=== PATIENT | female | born 1975 | race Caucasian/White ===

== ENCOUNTER 2020-06-01 06:41 | Outpatient (CLI) | payer OTHER, SELFPAY ==
--- NOTE | 2020-06-03 11:22 | SLEEP_ITS ---
Home Sleep Test DATE OF STUDY: 06/01/2020 ORDERING PROVIDER: Sharmin Luna, nurse practitioner. REASON FOR THE STUDY: Hypersomnia. HISTORY: The patient is a 45-year-old female, 5 feet 7 inches tall, weighing 358 pounds with a body mass index of 56.2. 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 Her sleep complaints include feeling tired all the time. This has gotten worse over the last 5 years. Even on her 3 days off, she does not feel fully rested. She has low energy and has noticed increased nighttime incontinence which has been present since childhood, but worse recently. This is a moderately severe problem. Her father and brother have DENNYS and her mother has a mild case with restless legs. She occasionally awakens at night with heartburn, belching, or choking. She rarely snores and it is rarely loud enough for others to complain about it. She rarely has trouble sleeping with a cold. She rarely gasps for breath at night or rarely has breathing problems witnessed by others. She occasionally sweats excessively at night, occasionally notices her heart pounding irregularly at night. She frequently falls asleep during the day rarely involuntarily, but never while driving. She does not have loss of muscle tone with strong emotion. She rarely has daytime difficulties due to excessive sleepiness. She rarely feels paralyzed on waking or falling asleep. She does not have vivid dreamlike scenes upon awakening or falling asleep and is not afraid to go to sleep. She rarely has nightmares. She rarely remembers her dreams. She frequently has racing thoughts, feelings of sadness, depression, anxiety, and frequently has muscular tension. She rarely notices parts of her body jerking. She rarely kicks at night. She occasionally has crawly achy feelings in the legs and leg pain at night. She rarely has morning jaw pain. She occasionally grinds her teeth. She constantly is bothered by pain during the day and wakes up feeling stiff in the morning. She rarely has pain at night. She frequently wakes up with sore achy muscles and neck and spine pain. She has dizziness, stomach problems, fatigue, bowel disturbances, headaches, and depression. 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 She estimates sometimes 6 hours of sleep and as much as 14 hours when she has days off from work. It takes her 30 minutes to fall asleep and she typically awakens 1-2 times while sleeping, will go to the bathroom, use Facebook. It may take 30 to 90 minutes to go back to sleep. Wake-up time varies. She does take naps. Naps are not refreshing. She is usually drowsy after waking for 1-2 hours. She feels better in the evenings than in the mornings. MEDICAL COMORBIDITIES: Hypertension, anxiety, GERD, depression, seasonal allergies, arthritis. MEDICATIONS: 1. Atenolol 25 mg a day. 2. Hydrochlorothiazide 25 mg a day. 3. Xanax 2.5 mg p.r.n. anxiety. 4. Protonix 40 mg a day. 5. Escitalopram daily. 6. Zyrtec daily. 7. Flonase 2 sprays each nostril daily. 8. Multivitamin 1 daily. 9. Bi-Flex with vitamin D daily. 10. Turmeric 2000 mg daily. HABITS: Never smoked tobacco. Caffeine 3-4 beverages a day. No alcohol or recreational drugs. DESCRIPTION OF THE STUDY: On the [place] Sleepiness Scale, her score is 10, which is elevated. This was conducted as an unattended type III portable home sleep test using 4-channel monitoring with respiratory effort channel, snoring channel, oxygen desaturation channel, and heart rate channel. The study was scored using CMS guidelines. Duration was 9 hours 10 minutes. The apnea-hypopnea index was 18, elevated. Oxygen desaturation index 13.8. Lowest desaturation 80%. She had 47 apneas. The majority 74% or 35 apneas were central, 26% of the apneas
== END 2020-06-01 06:42 | disposition home or self-care (01) ==
LOC: ANHCSM 06:42
PROVIDERS: PCP Nurse Practitioner Family; Visit Provider Nurse Practitioner Family
DX: G47.10 Hypersomnia, unspecified (principal); G47.33 Obstructive sleep apnea (adult) (pediatric)
CPT/HCPCS: 95806

== ENCOUNTER 2020-06-19 08:20 | Outpatient (CLI) | payer OTHER, SELFPAY ==
--- NOTE | ~2020-06-19 | XR_ITS ---
EXAMINATION: XR knee RT 3V DATE: 06/19/2020 08:39 INDICATION: Right knee pain TECHNIQUE: Anteroposterior, sunrise and crosstable lateral views of the right knee were obtained COMPARISON: Right knee MRI dated 01/28/2019 and right knee radiographs dated 12/12/2018 FINDINGS: No fracture. Approximately 12 mm lateral patellar subluxation with severe joint space narrowing at th e lateral side of the patellofemoral compartment. Moderate joint space narrowing in the medial compar tment. Moderate-sized marginal osteophytes in all 3 compartments. The degree of joint space narrowing has progressed since the prior radiographs in both the medial and patellofemoral compartments. Large loose osteochondral body at the lateral side of the suprapatellar pouch. Chronic heterotopic ossific ation along the inferomedial margin of the patella which may represent sequela of chronic injury to t he lateral patellofemoral retinaculum. No joint effusion/layering lipohemarthrosis. Soft tissues are unremarkable. IMPRESSION: 1. Tricompartmental osteoarthritis with interval progression of now severe patellofemoral and moderat e medial compartment osteoarthritis. Reviewed, dictated and finalized at location A. IMPRESSION: 1. Tricompartmental osteoarthritis with interval progression of now severe zavala llofemoral and moderate medial compartment osteoarthritis.
== END 2020-06-19 08:21 | disposition home or self-care (01) ==
LOC: ANHIMG 08:23
PROVIDERS: PCP Nurse Practitioner Family; Visit Provider Orthopaedic Surgery
DX: M25.561 Pain in right knee (principal); M17.11 Unilateral primary osteoarthritis, right knee
CPT/HCPCS: 73562

== ENCOUNTER 2020-09-01 04:46 | Emergency (ER) | payer OTHER, SELFPAY ==
--- NOTE | ~2020-09-01 | CT_ITS ---
EXAMINATION: CT abdomen pelvis wo con DATE: 09/01/2020 06:05 INDICATION: Left flank pain TECHNIQUE: Computed tomography (CT) of the abdomen and pelvis was performed without intravenous contr ast. Automated exposure control and iterative reconstruction technique were employed. The dose-length product was 1687.49 mGy-cm. COMPARISON: None FINDINGS: Calcified nodule at the left lung base and calcified left hilar and paraesophageal lymph node consist ent with old granulomatous disease. Heart size is normal. No pericardial or pleural effusion. Diffuse hepatic steatosis. 2 mm calcified gallstone at the neck of the normal-appearing gallbladder. Splenom egaly measuring 16.4 cm craniocaudally. Pancreas, bilateral adrenal glands and right kidney are tere l. There is mild left hydronephrosis with prominent perinephric stranding on the left kidney with tra nsition point at the left ureterovesicular junction to normal caliber left ureter. There is subtle in creased density at the ureteropelvic junction which could represent an obstructing stone in either ve ry small with volume averaging or low-density. No other evident urolithiasis. Decompressed bladder is normal. Anteverted uterus and bilateral adnexa are unremarkable. There is mild colonic diverticulosi s with a sigmoid predominance. There is no adjacent inflammatory change to suggest diverticulitis. S mall bowel and appendix are normal. No free intraperitoneal gas or fluid. Shotty bilateral inguinal l ymph nodes as well as likely reactive mild retroperitoneal lymphadenopathy with largest lymph node me asuring 12 mm in maximal short axis diameter along the right iliac chain. Moderate thoracic and sever e lumbar spondylosis. Mild anterior wedging at T11 and T12. IMPRESSION: 1. Mild left hydronephrosis and prominent perinephric stranding with transition point at the ureterop elvic junction. Tiny focus of subtle increased density at the ureteropelvic junction which is indeter minate for very small or low density stone versus artifact. 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 2. Mild diverticulosis. 3. Nonspecific splenomegaly which could be related to body habitus. 4. Likely reactive mild retroperitoneal lymphadenopathy. Reviewed, dictated and finalized at location A. IMPRESSION: 1. Mild left hydronephrosis and prominent perinephric stranding with transition point at the ureteropelvic junction. Tiny focus of subtle increased density at the ureteropelvic junction which is indeterminate for very small or low densit y stone versus artifact. Alternatively this could represent a chronic UPJ obstr uction of otherwise minimal significance aside from superimposed urinary tract infection and would correlate with urinalysis. 2. Mild diverticulosis. 3. Nonspecific splenomegaly which could be related to body habitus. 4. Likely reactive mild retroperitoneal lymphadenopathy.
[2020-09-01 04:47] VITALS: BP 194/103; PULSE 85; RESP 16; TEMP 36.9; O2SAT 98
[2020-09-01] MEDS: PROMETHAZINE HCL 25 MG/ML AMPUL 12.5 MG IV PUSH (05:13)
--- NOTE | 2020-09-01 05:13 | ED.ABDPAIN ---
HPI - Abdominal Pain General Chief Complaint: Abdominal Pain Stated Complaint: left flank pain Time Seen by Provider: 09/01/20 05:10 Source: patient Mode of arrival: ambulatory Limitations: no limitations History of Present Illness HPI narrative: Patient is a 45-year-old female complaining of left flank pain radiating to her left mid abdomen that started prior to arrival. Patient states that her pain is a 6-7 out of 10 accompanied by nausea and vomiting. Patient denies any chest pain, shortness of breath, diarrhea or fever. She denies GI bleed. Related Data Home Medications Medication Instructions Recorded Confirmed alprazolam 0.25 mg tablet 0.25 mg PO DAILY 06/22/20 06/22/20 atenolol 25 mg tablet 25 mg PO DAILY 06/22/20 06/22/20 cetirizine 10 mg tablet 10 mg PO DAILY 06/22/20 06/22/20 escitalopram oxalate 20 mg tablet 20 mg PO DAILY 06/22/20 06/22/20 glucosamine-chondroitin 250 mg-200 2 tablet PO TID 06/22/20 06/22/20 mg tablet hydrochlorothiazide 25 mg tablet 25 mg PO DAILY 06/22/20 06/22/20 ketorolac 10 mg tablet 10 mg PO Q6H PRN 06/22/20 06/22/20 pantoprazole 40 mg tablet,delayed 40 mg PO QAM 06/22/20 06/22/20 release Allergies Allergy/AdvReac Type Severity Reaction Status Date / Time No Known Allergies Allergy Verified 09/01/20 05:02 Review of Systems Review of Systems: All systems reviewed & are unremarkable except as noted in HPI and below Constitutional: Constitutional: Denies body ache(s), Denies chills, Denies excessive sweating, Denies fatigue, Denies fever(s), Denies headache(s), Denies lethargy, Denies malaise, Denies weakness and Denies weight loss Eyes: Eyes: Denies blurry vision, Denies change in vision and Denies loss of vision ENT: Denies dizziness, Denies ear discharge, Denies headache(s), Denies lip swelling, Denies epistaxis, Denies nasal congestion, Denies neck pain, Denies throat swelling and Denies tongue swelling Cardiovascular: Cardiovascular: Denies chest pain, Denies chest pain at rest, Denies chest pain with activity, Denies diaphoresis, Denies rapid heart rate, Denies edema, Denies irregular heart rhythm, Denies lightheadedness, Denies palpitations, Denies dyspnea and Denies dyspnea on exertion Respiratory: Respiratory: Denies chest congestion, Denies cough, Denies hemoptysis, Denies dyspnea and Denies dyspnea on exertion Gastrointestinal: Gastrointestinal: Denies abdominal pain, Denies melena, Denies hematochezia, Denies diarrhea, Denies nausea, Denies vomiting and Denies hematemesis Musculoskeletal: Musculoskeletal: Denies abnormal gait, Denies deformity, Denies joint swelling, Denies limited range of motion, Denies neck pain and Denies numbness Neurologic: Denies Abnormal speech present, Denies abnormal gait, Denies confusion, Denies dizziness, Denies headache(s), Denies focal weakness, Denies loss of vision, Denies numbness, Denies Other visual disturbances, Denies Sensory deficit (Neuro) and Denies weakness Psychiatric: Psychiatric: Denies confusion, Denies depression, Denies auditory hallucinations, Denies homicidal ideation and Denies suicidal ideation Endocrine: Endocrine: Denies cold intolerance, Denies excessive sweating, Denies fatigue, Denies heat intolerance and Denies palpitations Hematologic/Lymphatic: Hematologic/Lymphatic: Denies easy bleeding and Denies easy bruising Allergic/Immunologic: Allergic/Immunologic: Denies lip swelling, Denies throat swelling and Denies tongue swelling FOR[facility]LY [facility] Past Medical History Medical History (Updated 09/01/20 @ 06:54 by Lucian Leach MD) Adult body mass index 40 and over Hypertension Osteoarthritis of right knee Family History Family History Mother Hypertension Kidney disease Cerebrovascular accident Social History Social History Smoking status: Never smoker Alcohol intake: current Additional occupation/educat
[2020-09-01] MEDS: KETOROLAC 30 MG/ML VIAL (*BKC) IV PUSH (05:14)
[2020-09-01] MEDS: SODIUM CHLORIDE 0.9% IV 1,000 ML 999 ML IV CONT (05:14)
[2020-09-01 05:16] LABS: Basophils Absolute Auto 0.1 K/mm3 (0.0-0.1); Basophils Percent Auto 0.4 % (0.2-1.2); Eosinophils Absolute Auto 0.5 K/mm3 (0-0.3); Eosinophils Percent Auto 3.4 % (0-4.4); Hematocrit 39.9 % (37.0-47.0); Hemoglobin 12.9 g/dL (12.0-15.0); Immature Granulocyte Absolute 0.08 K/mm3 (0.00-0.031); Immature Granulocyte Percent A 0.5 % (0-0.5); Lymphocytes Absolute Auto 3.43 K/mm3 (0.9-3.2); Lymphocytes Percent Auto 23.1 % (18.3-44.2); Mean Corpuscular HGB Conc 32.3 g/dl (32-36); Mean Corpuscular Hemoglobin 27.4 pg (26-34); Mean Corpuscular Volume 84.7 fl (80-100); Mean Platelet Volume 10.6 fl (7.4-10.4); Monocytes Absolute Auto 0.9 K/mm3 (0.1-0.6); Monocytes Percent Auto 6.3 % (2.6-8.5); Neutrophils Absolute Auto 9.8 K/mm3 (1.3-6.7); Neutrophils Percent Auto 66.3 % (45.5-73.1); Platelet Count Result 282 k/mm3 (150-375); Red Blood Count 4.71 M/mm3 (4.2-5.4); Red Cell Distribution Width 13.8 % (11.5-14.5); White Blood Count 14.8 K/mm3 (4.5-10.0)
[2020-09-01 05:26] LABS: Anion Gap 9 mmol/L (8-16); Blood Urea Nitrogen 13 mg/dL (7-17); Calcium 9.1 mg/dL (8.4-10.2); Carbon Dioxide 28 mmol/L (22-30); Chloride 101 mmol/L (98-107); Estimated Glomerular Filt Rate > 60; Glucose 362 mg/dL (65-105); Potassium 3.9 mmol/L (3.4-5.0); Sodium 138 mmol/L (137-145)
[2020-09-01 06:16] LABS: Add Urine Microscopic? YES; Appearance Urine Cloudy (Clear); Bacteria Urine Trace /hpf; Bilirubin Urine Negative (Negative); Blood Urine 3+ (Negative); Color Urine Yellow (Yellow); Glucose Urine UA 3+ mg/dL (Negative); Ketones Urine Negative (Negative); Leukocyte Esterase Ur Negative LEU/UL (Negative); Nitrate Urine Negative (Negative); Protein Urine 1+ mg/dL (Negative); RBC Urine >75 /hpf (0-2); Specific Grav Ur 1.026 (1.001-1.035); Squamous Epithelial Cell Urine Few /hpf (Few); Urobilinogen Urine Negative mg/dL (<2.0)
[2020-09-01 06:20] VITALS: BP 150/79; PULSE 81; RESP 16; O2SAT 98
[2020-09-01 07:06] VITALS: BP 171/80; PULSE 68; RESP 16; O2SAT 98
== END 2020-09-01 07:10 | disposition home or self-care (01) ==
PROVIDERS: Emergency Provider Emergency Medicine; PCP Nurse Practitioner Family
DX: N13.2 Hydronephrosis with renal and ureteral calculous obstruction (principal); I10 Essential (primary) hypertension; M17.11 Unilateral primary osteoarthritis, right knee
CPT/HCPCS: 36415; 74176; 80048; 81001; 81025; 85025; 87086; 87088; 96361; 96374; 96375; 99284; J1885; J2550; J7030

== ENCOUNTER 2020-09-08 09:51 | Outpatient (CLI) | payer OTHER, SELFPAY ==
[2020-09-08 10:23] LABS: Basophils Absolute Auto 0.1 K/mm3 (0.0-0.1); Basophils Percent Auto 0.7 % (0.2-1.2); Eosinophils Absolute Auto 0.4 K/mm3 (0-0.3); Eosinophils Percent Auto 3.6 % (0-4.4); Hematocrit 42.3 % (37.0-47.0); Hemoglobin 13.5 g/dL (12.0-15.0); Immature Granulocyte Absolute 0.06 K/mm3 (0.00-0.031); Immature Granulocyte Percent A 0.5 % (0-0.5); Lymphocytes Absolute Auto 3.76 K/mm3 (0.9-3.2); Lymphocytes Percent Auto 31.3 % (18.3-44.2); Mean Corpuscular HGB Conc 31.9 g/dl (32-36); Mean Corpuscular Hemoglobin 26.7 pg (26-34); Mean Corpuscular Volume 83.8 fl (80-100); Mean Platelet Volume 10.3 fl (7.4-10.4); Monocytes Absolute Auto 0.6 K/mm3 (0.1-0.6); Monocytes Percent Auto 4.6 % (2.6-8.5); Neutrophils Absolute Auto 7.2 K/mm3 (1.3-6.7); Neutrophils Percent Auto 59.3 % (45.5-73.1); Platelet Count Result 314 k/mm3 (150-375); Red Blood Count 5.05 M/mm3 (4.2-5.4); Red Cell Distribution Width 14.1 % (11.5-14.5)
[2020-09-08 10:25] LABS: Hemoglobin A1C 7.9 % (<5.7)
[2020-09-08 10:28] LABS: Alanine Aminotransferase 20 U/L (4-35); Albumin Level 4.4 g/dL (3.5-5.1); Alkaline Phosphatase 98 U/L (38-126); Anion Gap 11 mmol/L (8-16); Aspartate Amino Transferase 60 U/L (14-36); Bilirubin,Total 0.7 mg/dL (0.2-1.3); Blood Urea Nitrogen 14 mg/dL (7-17); Calcium 9.5 mg/dL (8.4-10.2); Carbon Dioxide 26 mmol/L (22-30); Chloride 104 mmol/L (98-107); Cholesterol 204 mg/dL (0-200); Estimated Glomerular Filt Rate 54; Glucose 110 mg/dL (65-105); HDL Direct 34 mg/dL; Potassium 4.1 mmol/L (3.4-5.0); Sodium 141 mmol/L (137-145); Triglycerides 136 mg/dL (<150)
[2020-09-08 10:39] LABS: LDL Cholesterol Direct 143 mg/dL
== END 2020-09-08 09:52 | disposition home or self-care (01) ==
PROVIDERS: PCP Nurse Practitioner Family; Visit Provider Nurse Practitioner Family
DX: Z13.220 Encounter for screening for lipoid disorders (principal); Z13.29 Encounter for screening for other suspected endocrine disorder; Z13.1 Encounter for screening for diabetes mellitus; Z13.0 Encounter for screening for diseases of the blood and blood-forming organs and certain disorders involving the immune mechanism
CPT/HCPCS: 36415; 80053; 80061; 83036; 84443; 85025

== ENCOUNTER 2020-11-23 15:49 | Outpatient (CLI) | payer OTHER, SELFPAY ==
[2020-11-23 17:00] LABS: Anion Gap 5 mmol/L (8-16); Blood Urea Nitrogen 16 mg/dL (7-17); Calcium 9.5 mg/dL (8.4-10.2); Carbon Dioxide 33 mmol/L (22-30); Chloride 101 mmol/L (98-107); Cholesterol 180 mg/dL (0-200); Estimated Glomerular Filt Rate 54; Glucose 95 mg/dL (65-105); HDL Direct 34 mg/dL; Potassium 3.8 mmol/L (3.4-5.0); Sodium 139 mmol/L (137-145); Triglycerides 121 mg/dL (<150)
[2020-11-23 17:11] LABS: LDL Cholesterol Direct 118 mg/dL
== END 2020-11-23 15:50 | disposition home or self-care (01) ==
LOC: ANHLAB 15:53
PROVIDERS: PCP Nurse Practitioner Family; Visit Provider Nurse Practitioner Family
DX: E11.9 Type 2 diabetes mellitus without complications (principal); Z13.220 Encounter for screening for lipoid disorders
CPT/HCPCS: 36415; 80048; 80061; 83036

== ENCOUNTER 2020-11-29 07:58 | Outpatient (CLI) | payer OTHER, SELFPAY ==
--- NOTE | ~2020-11-29 | XR_ITS ---
EXAMINATION: XR abdomen/kub 1V EXAM DATE: 11/29/2020 08:17 INDICATION: Hydronephrosis. TECHNIQUE: Frontal projection of the upper abdomen, frontal projection lower abdomen/pelvis for inter pretation. Correlation is made to CT abdomen pelvis same date. FINDINGS: There is expected amount of colonic stool and gas. No small bowel dilation, nonobstructiv e bowel gas pattern. There are no suspicious calcifications identified. There is no organomegaly suspected. Moderate lumbar spondylosis. IMPRESSION: Unremarkable abdomen x-ray exam. Reviewed, dictated and finalized at location A. T OFFICE SPEC
--- NOTE | ~2020-11-29 | CT_ITS ---
EXAMINATION: CT abdomen pelvis wo/w con DATE: 11/29/2020 08:47 INDICATION: Left hydronephrosis. TECHNIQUE: Computed tomography (CT) of the abdomen and pelvis was performed without and with intraven ous contrast using a total of 130 mL Omnipaque-350 intravenous contrast with a double-bolus technique for simultaneous opacification of the renal parenchyma and renal collecting system. Automated exposu re control and iterative reconstruction technique were employed. The dose-length product was 3333.51 mGy-cm. COMPARISON: CT abdomen and pelvis 09/01/2020 FINDINGS: The visualized portions of the lung bases demonstrate mild scarring in paraspinal right lower lobe. A calcified left lung nodule and calcified paraesophageal and left hilar lymph nodes are consistent wi th old granulomatous disease. No pleural effusion. The heart size is normal. No pericardial effusion. There is mild splenomegaly measuring 14.5 cm. The liver, gallbladder, pancreas, adrenal glands, and right kidney are normal. Right ureter is not well-opacified in its distal half, but is normal. There is moderate left hydronephrosis with transition point at the ureteropelvic junction. The asymmetric l eft perinephric edema has improved. Left kidney is normal in size. There is no urolithiasis. Left ure ter is not opacified. The bladder is not well distended. There is diverticulosis of the colon without evidence of diverticulitis. The appendix is normal. There are no dilated loops of bowel. There is mi ld bilateral external iliac lymphadenopathy. For example, a right external iliac node measures 19 x 1 3 mm. There is no free intraperitoneal fluid. There is moderate thoracic spondylosis with mild chroni c anterior wedging of multiple lower thoracic vertebral bodies. There is severe lumbar spondylosis wi th mild chronic anterior wedging of L1 vertebral body. IMPRESSION: 1. Moderate left hydronephrosis with transition point at the ureteropelvic junction. 2. Stable mild bilateral external iliac lymphadenopathy, likely reactive. 3. Mild splenomegaly. Reviewed, dictated and finalized at location B. IMPRESSION: 1. Moderate left hydronephrosis with transition point at the ureteropelvic junc tion. 2. Stable mild bilateral external iliac lymphadenopathy, likely reactive. 3. Mild splenomegaly.
== END 2020-11-29 07:59 | disposition home or self-care (01) ==
LOC: ANHIMG 08:00
PROVIDERS: PCP Nurse Practitioner Family; Visit Provider Urology
DX: N13.30 Unspecified hydronephrosis (principal); R59.0 Localized enlarged lymph nodes; R16.1 Splenomegaly, not elsewhere classified
CPT/HCPCS: 74018; 74178; Q9967

== ENCOUNTER 2020-12-12 12:03 | Outpatient (CLI) | payer OTHER, SELFPAY ==
--- NOTE | ~2020-12-12 | NM_ITS ---
EXAMINATION: EMILIA lane renal scan DATE: 12/12/2020 13:22 INDICATION: Left hydronephrosis. TECHNIQUE: 8.5 mCi Tc-99m MAG3 was administered IV. 40 mg furosemide was administered IV immediately afterward. The patient was scanned in the supine position. A posterior abdominal radionuclide angiog dwayne was obtained. A subsequent time course of static images of the kidneys, ureters, and bladder was obtained. COMPARISON: CT abdomen and pelvis 11/29/2020, 09/01/2020 FINDINGS: The posterior abdominal radionuclide angiogram and sequential static images show normal siz e, position, and morphology of the kidneys. Peak renal parenchymal uptake was 3 min in right kidney a nd at least 29 min in left kidney (normal peak 3-5 minutes). The relative early renal uptake was 79% on the right and 21% on the left (<40% is abnormal). No abnormalities of the ureters or bladder are seen. T1/2 for clearance of activity from the right kidney and proximal collecting system was 7 minutes. T1/2 for clearance of activity from the left kidney and proximal collecting system could not be measu red. IMPRESSION: 1. Delayed and decreased left-sided nephrogram, consistent with obstructive uropathy. Reviewed, dictated and finalized at location A. ON GRADER IMPRESSION: 1. Delayed and decreased left-sided nephrogram, consistent with obstructive ur opathy.
== END 2020-12-12 12:04 | disposition home or self-care (01) ==
LOC: ANHIMG 12:07
PROVIDERS: PCP Nurse Practitioner Family; Visit Provider Urology
DX: N13.30 Unspecified hydronephrosis (principal)
CPT/HCPCS: 78708; A9562; J1940

== ENCOUNTER 2021-01-12 06:58 | Outpatient (CLI) | payer OTHER, SELFPAY ==
--- NOTE | ~2021-01-12 | XR_ITS ---
EXAMINATION: XR knee RT 3V DATE: 01/12/2021 07:19 INDICATION: Unilateral primary osteoarthritis, right knee. TECHNIQUE: 3 views of right knee were obtained. COMPARISON: Right knee radiograph 06/19/2020, MRI 01/28/2019 FINDINGS: There is lateral subluxation of patella. No fracture. There is severe osteoarthritis of pat ellofemoral compartment and moderate osteoarthritis of medial and lateral compartments. There is no k nee joint effusion. There is a large loose body in the right patellofemoral joint recess. IMPRESSION: 1. Severe right knee osteoarthritis with loose body. Reviewed, dictated and finalized at location A. ERECTOR
== END 2021-01-12 06:59 | disposition home or self-care (01) ==
PROVIDERS: PCP Nurse Practitioner Family; Visit Provider Orthopaedic Surgery
DX: M17.11 Unilateral primary osteoarthritis, right knee (principal); M23.41 Loose body in knee, right knee
CPT/HCPCS: 73562

== ENCOUNTER 2021-01-25 13:35 | Outpatient (CLI) | payer OTHER, SELFPAY ==
--- NOTE | ~2021-01-25 | NM_ITS ---
EXAMINATION: EMILIA lane renal scan DATE: 01/25/2021 15:09 INDICATION: Hydronephrosis post ureteral stent placement TECHNIQUE: 8 mCi Tc-99m MAG3 was administered IV. 40 mg furosemide was administered IV immediately a fterward. The patient was scanned in the supine position. A posterior abdominal radionuclide angiogra m was obtained. A subsequent time course of static images of the kidneys, ureters, and bladder was ob tained. COMPARISON: 12/12/2020 FINDINGS: The posterior abdominal radionuclide angiogram and sequential static images show normal position, and morphology of the kidneys. The left kidney appears decreased in size relative to the prior study as well as the contralateral right kidney. Peak renal parenchymal uptake was 1.0 min in left kidney and 3.4 min in right kidney (normal peak 3-5 minutes). The relative early renal uptake was 12% on the le ft and 88% on the right (<40% is abnormal). No abnormalities of the ureters or bladder are seen. T1/2 for clearance of activity from the left kidney and proximal collecting system was >100 minutes. T1/2 for clearance of activity from the right kidney and proximal collecting system was 5 minutes. IMPRESSION: 1. Suggestion of interval decrease in size of the left kidney with decreasing contribution to total renal function, previously 21%, now 12%. 2. Persistent markedly delayed contrast clearance from the left kidney which could be due to persist ent hydronephrosis, decreasing renal function or combination thereof. Reviewed, dictated and finalized at location B. IMPRESSION: 1. Suggestion of interval decrease in size of the left kidney with decreasing contribution to total renal function, previously 21%, now 12%. 2. Persistent markedly delayed contrast clearance from the left kidney which c ould be due to persistent hydronephrosis, decreasing renal function or combinat ion thereof.
== END 2021-01-25 13:36 | disposition home or self-care (01) ==
PROVIDERS: PCP Nurse Practitioner Family; Visit Provider Urology
DX: N13.30 Unspecified hydronephrosis (principal)
CPT/HCPCS: 78708; A9562; J1940

== ENCOUNTER 2021-03-24 07:21 | Outpatient (CLI) | payer OTHER, SELFPAY ==
[2021-03-24 07:55] LABS: Basophils Absolute Auto 0.1 K/mm3 (0.0-0.1); Basophils Percent Auto 0.6 % (0.2-1.2); Eosinophils Absolute Auto 0.3 K/mm3 (0-0.3); Eosinophils Percent Auto 2.8 % (0-4.4); Hematocrit 41.9 % (37.0-47.0); Hemoglobin 13.3 g/dL (12.0-15.0); Immature Granulocyte Absolute 0.04 K/mm3 (0.00-0.031); Immature Granulocyte Percent A 0.3 % (0-0.5); Lymphocytes Absolute Auto 4.05 K/mm3 (0.9-3.2); Lymphocytes Percent Auto 33.1 % (18.3-44.2); Mean Corpuscular HGB Conc 31.7 g/dl (32-36); Mean Corpuscular Hemoglobin 27.8 pg (26-34); Mean Corpuscular Volume 87.5 fl (80-100); Mean Platelet Volume 10.7 fl (7.4-10.4); Monocytes Absolute Auto 0.7 K/mm3 (0.1-0.6); Monocytes Percent Auto 5.4 % (2.6-8.5); Neutrophils Absolute Auto 7.1 K/mm3 (1.3-6.7); Neutrophils Percent Auto 57.8 % (45.5-73.1); Platelet Count Result 245 k/mm3 (150-375); Red Blood Count 4.79 M/mm3 (4.2-5.4); Red Cell Distribution Width 14.4 % (11.5-14.5); White Blood Count 12.2 K/mm3 (4.5-10.0)
[2021-03-24 08:07] LABS: Alanine Aminotransferase 9 U/L (4-35); Albumin Level 4.5 g/dL (3.5-5.1); Alkaline Phosphatase 60 U/L (38-126); Anion Gap 7 mmol/L (8-16); Aspartate Amino Transferase 40 U/L (14-36); Bilirubin,Total 0.7 mg/dL (0.2-1.3); Blood Urea Nitrogen 17 mg/dL (7-17); Calcium 10.1 mg/dL (8.4-10.2); Carbon Dioxide 32 mmol/L (22-30); Chloride 102 mmol/L (98-107); Cholesterol 207 mg/dL (0-200); Estimated Glomerular Filt Rate 54; Glucose 90 mg/dL (65-105); HDL Direct 46 mg/dL; Sodium 141 mmol/L (137-145); Triglycerides 114 mg/dL (<150)
[2021-03-24 08:11] LABS: Hemoglobin A1C 4.8 % (<5.7)
[2021-03-24 08:18] LABS: LDL Cholesterol Direct 128 mg/dL
== END 2021-03-24 07:22 | disposition home or self-care (01) ==
PROVIDERS: PCP Nurse Practitioner Family; Visit Provider Nurse Practitioner Family
DX: E11.9 Type 2 diabetes mellitus without complications (principal); E78.5 Hyperlipidemia, unspecified; I10 Essential (primary) hypertension
CPT/HCPCS: 36415; 80053; 80061; 83036; 85025

== ENCOUNTER 2021-05-30 08:55 | Outpatient (CLI) | payer OTHER, SELFPAY ==
--- NOTE | ~2021-05-30 | US_ITS ---
EXAMINATION: US retroperitoneal comp DATE: 05/30/2021 09:19 INDICATION: Left hydronephrosis TECHNIQUE: Multiple ultrasound grayscale images of the kidneys were obtained. COMPARISON: None. FINDINGS: The right kidney measures 12.7 x 4.7 x 5.4 cm. The left kidney measures 10.4 x 4.0 x 5.0 cm. The kidn eys demonstrate normal echogenicity. There is no hydronephrosis in either kidney. No stones identif ied. The bladder is decompressed which limits evaluation. IMPRESSION: 1. Normal kidneys without hydronephrosis. Reviewed, dictated and finalized at location A.
== END 2021-05-30 08:56 | disposition home or self-care (01) ==
PROVIDERS: PCP Nurse Practitioner Family; Visit Provider Urology
DX: N13.30 Unspecified hydronephrosis (principal)
CPT/HCPCS: 76770

== ENCOUNTER 2021-06-19 08:06 | Emergency (ER) | payer OTHER, SELFPAY ==
--- NOTE | ~2021-06-19 | XR_ITS ---
EXAMINATION: XR knee RT min 4V DATE: 06/19/2021 08:25 INDICATION: Right knee pain after fall TECHNIQUE: Four views of the right knee were obtained. COMPARISON: 01/12/2021 FINDINGS: There is unchanged lateral subluxation of the patella. There is tricompartmental osteoarthr itis, severe in the patellofemoral compartment and moderate in the medial and lateral compartments. N o joint effusion/synovitis. Again noted is a large loose body in the right patellofemoral joint rece ss. IMPRESSION: 1. Severe osteoarthritis without acute osseous abnormality. Reviewed, dictated and finalized at location B.
--- NOTE | 2021-06-19 08:13 | ED.LOWEXIN ---
HPI - Extremity Injury (Lower) General Chief Complaint: Extremity Injury, Lower Stated Complaint: Right Knee Pain Time Seen by Provider: 06/19/21 08:13 Source: patient and RN notes reviewed Mode of arrival: ambulatory Limitations: no limitations History of Present Illness HPI Narrative: 46 yo female presents to the [facility] with right knee pain. Patient states that she was walking and slipped falling on her right knee. History of osteoarthritis in that knee and states that she has been working with Dr. Rodriguez and possibly needing a knee replacement. Has a small abrasion with redness, minor swelling noted to the right knee. No laxity. Is able to walk with a limp favoring the right side. Denies any back pain, hip pain. No chest pain or shortness of breath. Did not hit head. No loss of consciousness. Related Data Home Medications Medication Instructions Recorded Confirmed alprazolam 0.25 mg tablet 0.25 mg PO DAILY 06/22/20 01/18/21 atenolol 25 mg tablet 25 mg PO DAILY 06/22/20 01/18/21 cetirizine 10 mg tablet 10 mg PO DAILY 06/22/20 01/18/21 escitalopram oxalate 20 mg tablet 20 mg PO DAILY 06/22/20 01/18/21 glucosamine-chondroitin 250 mg-200 2 tablet PO TID 06/22/20 01/18/21 mg tablet hydrochlorothiazide 25 mg tablet 25 mg PO DAILY 06/22/20 01/18/21 pantoprazole 40 mg tablet,delayed 40 mg PO QAM 06/22/20 01/18/21 release metformin 500 mg tablet 500 mg PO DAILY 01/18/21 01/18/21 Allergies Allergy/AdvReac Type Severity Reaction Status Date / Time No Known Allergies Allergy Verified 06/19/21 08:24 Review of Systems Review of Systems: All systems reviewed & are unremarkable except as noted in HPI and below Constitutional: Constitutional: Reports no additional constitutional complaints Eyes: Eyes: Reports no additional eye complaints ENT: Reports system reviewed and no additional complaints, except as documented Cardiovascular: Cardiovascular: Reports no additional cardiovascular complaints Respiratory: Respiratory: Reports no additional respiratory complaints Musculoskeletal: Musculoskeletal: Reports as per HPI and Reports arthralgias (right knee) Integumentary/Breasts: Skin/Breast: Reports as per HPI Comments: abrasion to the right knee Neurologic: Reports system reviewed and no additional complaints, except as documented Psychiatric: Psychiatric: Reports no additional psychiatric complaints Allergic/Immunologic: Allergic/Immunologic: Reports no additional allergic/immunologic complaints [facility] Past Medical History Medical History (Updated 06/19/21 @ 08:40 by Doris Anaya) Anxiety Depression Hemoglobin A1c less than 7.0% nov 2020 A1c= 5.0 HTN (hypertension) Hx of gastroesophageal reflux (GERD) Hypertension Osteoarthritis of right knee Surgical History Surgical History (Updated 06/19/21 @ 08:25 by Doris Anaya) History of carpal tunnel surgery of right wrist Family History Family History Mother Hypertension Kidney disease Cerebrovascular accident Social History Social History Smoking status: Never smoker Alcohol intake: current Alcohol use details: occasional Additional occupation/education comments: [employer] Gender identity (if verbalized by the patient): Female Comments At the time of my signature, I reviewed and agree with the nursing past medical, surgical, social, and family history. There is no relevant family history pertinent to the patient complaint. Exam Const: General: healthy appearing, no acute distress and alert Nutritional Appearance: well nourished and obese Orientation/consciousness: patient oriented x3 Limitations: no limitations HENMT: Head: normal to inspection Eyes: Pupils: Equal, round and reactive pupils present Neck: Neck: normal visual inspection, no lymphadenopathy and no meningeal signs Chest: Chest palpation
[2021-06-19 08:15] VITALS: BP 153/92; PULSE 70; RESP 16; TEMP 36.6; O2SAT 100
== END 2021-06-19 08:56 | disposition home or self-care (01) ==
PROVIDERS: Emergency Provider Nurse Practitioner; PCP Nurse Practitioner Family
DX: S80.01XA Contusion of right knee, initial encounter (principal); W01.0XXA Fall on same level from slipping, tripping and stumbling without subsequent striking against object, initial encounter; Y93.01 Activity, walking, marching and hiking; M17.11 Unilateral primary osteoarthritis, right knee; I10 Essential (primary) hypertension; K21.9 Gastro-esophageal reflux disease without esophagitis; F41.9 Anxiety disorder, unspecified; F32.9 Major depressive disorder, single episode, unspecified
CPT/HCPCS: 73564; 99213; G0463

== ENCOUNTER 2021-07-13 10:28 | Outpatient (CLI) | payer OTHER, SELFPAY ==
[2021-07-13 11:27] LABS: Alanine Aminotransferase 10 U/L (4-35); Albumin Level 4.4 g/dL (3.5-5.1); Alkaline Phosphatase 62 U/L (38-126); Anion Gap 6 mmol/L (8-16); Aspartate Amino Transferase 26 U/L (14-36); Bilirubin,Total 0.5 mg/dL (0.2-1.3); Blood Urea Nitrogen 27 mg/dL (7-17); Calcium 9.3 mg/dL (8.4-10.2); Carbon Dioxide 32 mmol/L (22-30); Chloride 100 mmol/L (98-107); Cholesterol 176 mg/dL (0-200); Estimated Glomerular Filt Rate 60; Glucose 96 mg/dL (65-110); HDL Direct 53 mg/dL; Sodium 138 mmol/L (137-145); Triglycerides 68 mg/dL (<150)
[2021-07-13 11:39] LABS: LDL Cholesterol Direct 87 mg/dL
[2021-07-13 11:48] LABS: Hemoglobin A1C 4.9 % (<5.7)
== END 2021-07-13 10:29 | disposition home or self-care (01) ==
LOC: ANHLAB 10:31
PROVIDERS: PCP Nurse Practitioner Family; Visit Provider Nurse Practitioner Family
DX: E11.9 Type 2 diabetes mellitus without complications (principal); E78.5 Hyperlipidemia, unspecified
CPT/HCPCS: 36415; 80053; 80061; 83036

== ENCOUNTER 2022-04-13 07:08 | Outpatient (CLI) | payer OTHER, SELFPAY ==
[2022-04-13 07:35] LABS: Hematocrit 40.3 % (37.0-47.0); Hemoglobin 12.9 g/dL (12.0-15.0); Mean Corpuscular Volume 84.5 fl (80-100); Platelet Count Result 255 k/mm3 (150-375); Red Blood Count 4.77 M/mm3 (4.2-5.4); White Blood Count 11.2 K/mm3 (4.5-10.0)
[2022-04-13 09:56] LABS: Vitamin D 25 Hydroxy 51.2 ng/mL
[2022-04-13 10:33] LABS: Alanine Aminotransferase 15 U/L (6-35); Albumin Level 4.3 g/dL (3.5-5.1); Alkaline Phosphatase 88 U/L (38-126); Anion Gap 7 mmol/L (8-16); Aspartate Amino Transferase 43 U/L (14-36); Bilirubin,Total 0.6 mg/dL (0.2-1.3); Blood Urea Nitrogen 14 mg/dL (7-17); Calcium 8.9 mg/dL (8.4-10.2); Carbon Dioxide 29 mmol/L (22-30); Chloride 104 mmol/L (98-107); Cholesterol 205 mg/dL (0-200); Estimated Glomerular Filt Rate > 60; Glucose 120 mg/dL (65-110); HDL Direct 42 mg/dL; Potassium 4.2 mmol/L (3.4-5.0); Sodium 140 mmol/L (137-145); Triglycerides 184 mg/dL (<150)
[2022-04-13 10:43] LABS: LDL Cholesterol Direct 121 mg/dL
[2022-04-13 11:13] LABS: Hemoglobin A1C 6.3 % (<5.7)
== END 2022-04-13 07:09 | disposition home or self-care (01) ==
LOC: ANHLAB 07:14
PROVIDERS: PCP Nurse Practitioner Family; Visit Provider Nurse Practitioner Family
DX: E55.9 Vitamin D deficiency, unspecified (principal); Z13.0 Encounter for screening for diseases of the blood and blood-forming organs and certain disorders involving the immune mechanism; E11.9 Type 2 diabetes mellitus without complications
CPT/HCPCS: 36415; 80053; 80061; 82306; 82607; 83036; 84443; 85027

== ENCOUNTER 2022-12-18 08:42 | Emergency (ER) | payer OTHER, SELFPAY ==
[2022-12-18 08:51] VITALS: BP 132/79; PULSE 69; RESP 16; TEMP 37.1; O2SAT 100
--- NOTE | 2022-12-18 08:55 | ED.URI ---
HPI - URI/Sore Throat General Chief Complaint: Upper Respiratory Infection Stated Complaint: covid sx Time Seen by Provider: 12/18/22 09:03 Source: patient and RN notes reviewed Mode of arrival: ambulatory Limitations: no limitations History of Present Illness HPI Narrative: 47 y/o female presented for c/o cough and sinus congestion for about 10 days. Endorses about 3 days after onset of symptoms, she started Augmented per PCP. Reports med compliance. Patient tested negative for covid 4 days ago and again this morning. Endorses sob with exertion, chest tightness with cough, headache and fatigue. Cough is nonproductive. She has used albuterol inhaler yesterday, from a previous prescription. Also using otc meds without relief. Denies sick contacts. Denies n/v/d/f/c. MD elicited complaint: cough Related Data Home Medications Medication Instructions Recorded Confirmed alprazolam 0.25 mg tablet (Xanax) 0.25 mg PO DAILY 06/22/20 12/18/22 atenolol 25 mg tablet 25 mg PO DAILY 06/22/20 12/18/22 cetirizine 10 mg tablet 10 mg PO DAILY 06/22/20 12/18/22 escitalopram oxalate 20 mg tablet 20 mg PO DAILY 06/22/20 12/18/22 glucosamine-chondroitin 250 mg-200 2 tablet PO TID 06/22/20 12/18/22 mg tablet (Osteo Bi-Flex) hydrochlorothiazide 25 mg tablet 25 mg PO DAILY 06/22/20 12/18/22 pantoprazole 40 mg tablet,delayed 40 mg PO QAM 06/22/20 12/18/22 release metformin 500 mg tablet 500 mg PO DAILY 01/18/21 12/18/22 amoxicillin 875 mg-potassium 1 tablet PO BID 12/18/22 12/18/22 clavulanate 125 mg tablet fluconazole 150 mg tablet 150 mg PO DAILY 12/18/22 12/18/22 Allergies Allergy/AdvReac Type Severity Reaction Status Date / Time No Known Allergies Allergy Verified 12/18/22 08:48 Review of Systems Review of Systems: CONSTITUTIONAL: Denies malaise, chills, sweats, fever EYES: Denies visual changes, redness, or discharge ENT: Reports rhinorrhea, congestion, sinus pain, denies otalgia, sore throat CARDIOVASCULAR: Denies chest pain, palpitations, edema RESPIRATORY: Reports cough, post nasal drainage. Denies dyspnea GASTROINTESTINAL: Denies abdominal pain, nausea, vomiting, diarrhea SKIN: Denies rash or itching MUSCULOSKELETAL: Denies myalgia PMFSH Past Medical History Medical History Anxiety Depression Hemoglobin A1c less than 7.0% nov 2020 A1c= 5.0 HTN (hypertension) Hx of gastroesophageal reflux (GERD) Hypertension Osteoarthritis of right knee Surgical History Surgical History History of carpal tunnel surgery of right wrist Family History Family History Mother Hypertension Kidney disease Cerebrovascular accident Social History Social History Smoking status: Never smoker Alcohol intake: current Alcohol use details: occasional Occupation/Education: occupation Additional occupation/education comments: [employer] Gender identity (if verbalized by the patient): Female Exam Narrative: GENERAL: Ill-appearing, nontoxic EYES: conjunctivae clear ENT: Mucous membranes moist. TMs pearly dodson with dull light reflex bilaterally; no tragal tenderness. Oropharynx erythematous without lesions or exudate NECK: Supple. No lymphadenopathy CHEST: Clear to auscultation, breath sounds equal. No wheezing, rhonchi, rales, or stridor. No respiratory distress, speaks in full sentences. HEART: Regular rate and rhythm. No murmur heard. SKIN: Warm, dry, no rash. NEURO: Alert and oriented x3. PSYCH: Normal mood and affect Course Course Emergency Course: Patient is aware of diagnosis, understands and agrees to treatment plan. Anticipatory guidance given. Patient agrees to follow-up as directed and is aware of reasons to seek care at the emergency department. Portions of this record ma
== END 2022-12-18 10:32 | disposition home or self-care (01) ==
PROVIDERS: Emergency Provider Nurse Practitioner Family; PCP Nurse Practitioner Family
DX: J06.9 Acute upper respiratory infection, unspecified (principal); I10 Essential (primary) hypertension; K21.9 Gastro-esophageal reflux disease without esophagitis; M17.11 Unilateral primary osteoarthritis, right knee; F41.9 Anxiety disorder, unspecified; F32.A Depression, unspecified
CPT/HCPCS: 99213; G0463

== ENCOUNTER 2023-06-04 17:01 | Outpatient (CLI) | payer OTHER, SELFPAY ==
[2023-06-04 17:53] LABS: Basophils Absolute Auto 0.1 K/mm3 (0.0-0.1); Basophils Percent Auto 0.6 % (0.2-1.2); Eosinophils Absolute Auto 0.4 K/mm3 (0-0.3); Eosinophils Percent Auto 3.6 % (0-4.4); Hematocrit 40.2 % (37.0-47.0); Hemoglobin 12.6 g/dL (12.0-15.0); Immature Granulocyte Absolute 0.06 K/mm3 (0.00-0.031); Immature Granulocyte Percent A 0.6 % (0-0.5); Lymphocytes Percent Auto 25.2 % (18.3-44.2); Mean Corpuscular HGB Conc 31.3 g/dl (32-36); Mean Corpuscular Hemoglobin 26.6 pg (26-34); Mean Corpuscular Volume 84.8 fl (80-100); Mean Platelet Volume 10.9 fl (7.4-10.4); Monocytes Absolute Auto 0.6 K/mm3 (0.1-0.6); Monocytes Percent Auto 5.6 % (2.6-8.5); Neutrophils Absolute Auto 6.9 K/mm3 (1.3-6.7); Neutrophils Percent Auto 64.4 % (45.5-73.1); Platelet Count Result 236 k/mm3 (150-375); Red Blood Count 4.74 M/mm3 (4.2-5.4); Red Cell Distribution Width 14.6 % (11.5-14.5); White Blood Count 10.7 K/mm3 (4.5-10.0)
[2023-06-04 18:28] LABS: Alanine Aminotransferase 25 U/L (6-35); Albumin Level 4.3 g/dL (3.5-5.1); Alkaline Phosphatase 87 U/L (38-126); Anion Gap 9 mmol/L (8-16); Aspartate Amino Transferase 54 U/L (14-36); Bilirubin,Total 0.8 mg/dL (0.2-1.3); Blood Urea Nitrogen 13 mg/dL (7-17); Calcium 8.9 mg/dL (8.4-10.2); Carbon Dioxide 28 mmol/L (22-30); Chloride 103 mmol/L (98-107); Cholesterol 183 mg/dL (0-200); Estimated Glomerular Filt Rate > 60; Glucose 139 mg/dL (65-110); HDL Direct 37 mg/dL; Potassium 3.7 mmol/L (3.4-5.0); Sodium 140 mmol/L (137-145); Triglycerides 125 mg/dL (<150)
[2023-06-04 18:39] LABS: LDL Cholesterol Direct 114 mg/dL
[2023-06-05 03:28] LABS: Hemoglobin A1C 7.1 % (<5.7)
[2023-06-05 12:08] LABS: Vitamin D 25 Hydroxy 58.3 ng/mL
== END 2023-06-04 17:02 | disposition home or self-care (01) ==
PROVIDERS: PCP Nurse Practitioner Family; Visit Provider Nurse Practitioner Family
DX: Z13.29 Encounter for screening for other suspected endocrine disorder (principal); Z13.0 Encounter for screening for diseases of the blood and blood-forming organs and certain disorders involving the immune mechanism; I10 Essential (primary) hypertension; E11.9 Type 2 diabetes mellitus without complications; E55.9 Vitamin D deficiency, unspecified
CPT/HCPCS: 36415; 80053; 80061; 82306; 83036; 84443; 85025

== ENCOUNTER 2023-09-25 00:41 | Day surgery (SDC) | payer OTHER, SELFPAY ==
[2023-09-13 09:27] VITALS: BMI 54.8
--- NOTE | 2023-09-23 11:18 | SUR.PREOP ---
Patient called regarding upcoming procedure. Message left on patient's voicemail regarding preop instructions, appointment times, and procedure prep.
[2023-09-25 09:44] VITALS: BP 144/85; PULSE 88; RESP 18; TEMP 35.7; O2SAT 98; BMI 50.5
[2023-09-25] MEDS: LACTATED RINGERS 1,000 ML 150 ML IV CONT (10:11)
[2023-09-25 10:14] LABS: Glucose Point of Care 203 mg/dl (65-105)
--- NOTE | 2023-09-25 10:42 | PM.HPGS ---
History of Present Illness History of Present Illness Consent: Risks, benefits, and alternatives have been discussed and questions answered. Patient agrees to proceed with procedure. Chief complaint: neoplasm screening Narrative: Maricruz Kim is a 48 year old female here for first screening colonoscopy Review of Systems Constitutional: Constitutional: Denies headache(s) and Denies weakness Eyes: Eyes: Denies blurry vision ENT: Reports Normal hearing present, Denies headache(s) and Denies neck pain Cardiovascular: Cardiovascular: Denies chest pain and Denies dyspnea Respiratory: Respiratory: Denies dyspnea Gastrointestinal: Gastrointestinal: Reports no additional gastrointestinal complaints Genitourinary: Genitourinary: Denies dysuria Musculoskeletal: Musculoskeletal: Denies neck pain Integumentary/Breasts: Skin/Breast: Denies dry skin Neurologic: Reports Normal hearing present, Denies headache(s) and Denies weakness Psychiatric: Psychiatric: Denies anxiety Endocrine: Endocrine: Denies change in body appearance Hematologic/Lymphatic: Hematologic/Lymphatic: Denies easy bleeding Allergic/Immunologic: Allergic/Immunologic: Denies urticaria [facility] Past Medical History Medical History (Updated 09/25/23 @ 10:42 by Rai Ye MD) Anxiety Colon cancer screening Depression Hemoglobin A1c less than 7.0% nov 2020 A1c= 5.0 HTN (hypertension) Hx of gastroesophageal reflux (GERD) Hypertension Osteoarthritis of right knee Surgical History Surgical History History of carpal tunnel surgery of right wrist Family History Family History Mother Hypertension Kidney disease Cerebrovascular accident Social History Social History Smoking status: Never smoker Alcohol intake: current Alcohol use details: once a week Substance use: never Substance use type: does not use Living arrangements: with family Occupation/Education: occupation Additional occupation/education comments: [employer] Gender identity (if verbalized by the patient): Female Spiritual care concerns: No Meds Home Medications and Allergies Home Medications Medication Instructions Recorded Confirmed Type alprazolam 0.25 mg tablet (Xanax) 0.25 mg PO DAILY 06/22/20 09/13/23 History atenolol 25 mg tablet 25 mg PO DAILY 06/22/20 09/13/23 History cetirizine 10 mg tablet 10 mg PO DAILY 06/22/20 09/13/23 History escitalopram oxalate 20 mg tablet 20 mg PO DAILY 06/22/20 09/13/23 History glucosamine-chondroitin 250 mg-200 2 tablet PO TID 06/22/20 09/13/23 History mg tablet (Osteo Bi-Flex) hydrochlorothiazide 25 mg tablet 25 mg PO DAILY 06/22/20 09/13/23 History pantoprazole 40 mg tablet,delayed 40 mg PO QAM 06/22/20 12/18/22 History release metformin 500 mg tablet 500 mg PO DAILY 01/18/21 09/13/23 History Allergies Allergy/AdvReac Type Severity Reaction Status Date / Time No Known Allergies Allergy Verified 09/13/23 09:23 Vital Signs Vital Signs - 24 hr 09/25/23 09:44 Temperature 96.2 F L Pulse Rate 88 Respiratory Rate 18 Blood Pressure 144/85 H Pulse Oximetry 98 Oxygen Delivery Room Air Exam Const: General: comfortable and no acute distress HENMT: Face/Nose/Sinus: Normal nares present Eyes: General: appearance normal, both eyes and all related structures Neck: Neck: no JVD Resp: Auscultation: clear to auscultation bilaterally Cardio: Rate: regular rate Rhythm: regular rhythm GI: Inspection: non-distended GI Palp: Yes Soft to palpation Skin: General skin exam: normal color Neuro: General: gait normal Speech: normal speech Extrem: General: normal to inspection Psych: Mental Status: mental status grossly normal Assessment and Plan Assessment and plan (1) Colon cancer screening:
--- NOTE | 2023-09-25 10:55 | WPDANESEPPF ---
Anes - Initial Pre Proc Eval Procedure: Operation Date: 09/25/23 13:30 Proposed Procedures p Screening Colonoscopy - Rai Ye MD Date/Time: 09/25/23 10:55 Surgeon: Rai Ye MD Pre Op Diagnosis: neoplasm screening Patient Data Age: 48 Gender: F Height: 1.7 m Weight: 146.4 kg Last Vital Signs Temp 96.2 F L 09/25/23 09:44 Pulse 88 09/25/23 09:44 Resp 18 09/25/23 09:44 BP 144/85 H 09/25/23 09:44 Pulse Ox 98 09/25/23 09:44 O2 Del Method Room Air 09/25/23 09:44 Allergies Allergy/AdvReac Type Severity Reaction Status Date / Time No Known Allergies Allergy Verified 09/13/23 09:23 Home Medications Medication Instructions Recorded Confirmed Type alprazolam 0.25 mg tablet (Xanax) 0.25 mg PO DAILY 06/22/20 09/13/23 History atenolol 25 mg tablet 25 mg PO DAILY 06/22/20 09/13/23 History cetirizine 10 mg tablet 10 mg PO DAILY 06/22/20 09/13/23 History escitalopram oxalate 20 mg tablet 20 mg PO DAILY 06/22/20 09/13/23 History glucosamine-chondroitin 250 mg-200 2 tablet PO TID 06/22/20 09/13/23 History mg tablet (Osteo Bi-Flex) hydrochlorothiazide 25 mg tablet 25 mg PO DAILY 06/22/20 09/13/23 History pantoprazole 40 mg tablet,delayed 40 mg PO QAM 06/22/20 12/18/22 History release metformin 500 mg tablet 500 mg PO DAILY 01/18/21 09/13/23 History Laboratory Tests 09/25/23 10:01 POC Capillary Glucose 203 H mg/dl (65-105) Patient hx anesthesia problems: none Family hx anesthesia problems: none Results Review: All pre-operative results and documents have been reviewed as part of the pre-operative evaluation. [facility] Past Medical History Medical History (Updated 09/25/23 @ 10:42 by Rai Ye MD) Anxiety Colon cancer screening Depression Hemoglobin A1c less than 7.0% nov 2020 A1c= 5.0 HTN (hypertension) Hx of gastroesophageal reflux (GERD) Hypertension Osteoarthritis of right knee Surgical History Surgical History History of carpal tunnel surgery of right wrist Family History Family History Mother Hypertension Kidney disease Cerebrovascular accident Social History Social History Smoking status: Never smoker Alcohol intake: current Alcohol use details: once a week Substance use: never Substance use type: does not use Living arrangements: with family Occupation/Education: occupation Additional occupation/education comments: [employer] Gender identity (if verbalized by the patient): Female Spiritual care concerns: No Anes - Eval Final PreProcedure Day of Procedure 09/25/23 10:55 Patient weight: super morbidly obese Heart: regular rate and rhythm Lungs: clear to auscultation Airway: Mallampati scale class III Neurological: alert and oriented Last oral intake: >/= 8 hours ASA classification: III Emergent: no Anesthetic plan: proceed Anesthesia type and monitoring: general GIVS and standard monitoring Results Review: All pre-operative results and documents have been reviewed as part of the pre-operative evaluation. Informed Consent: The patient's anesthetic plan and its attendant risks and benefits were discussed with the patient/family/POA. Questions were solicited and answers provided to the satisfaction of the patient/family/POA.
[2023-09-25 11:08] VITALS: BP 129/108; PULSE 91; RESP 20; O2SAT 97
[2023-09-25 11:18] VITALS: BP 128/92; PULSE 91; RESP 20; O2SAT 94
[2023-09-25 11:28] VITALS: BP 141/91; PULSE 91; RESP 20; O2SAT 94
== END 2023-09-25 11:37 | disposition home or self-care (01) ==
PROVIDERS: PCP Nurse Practitioner Family; Visit Provider Internal Medicine Gastroenterology
PROC: 0DJD8ZZ Inspection of Lower Intestinal Tract, Via Natural or Artificial Opening Endoscopic (ICD-10-PCS; CPT 45378; principal; 2023-09-25 13:30)
DX: Z12.11 Encounter for screening for malignant neoplasm of colon (principal); K63.5 Polyp of colon; K57.30 Diverticulosis of large intestine without perforation or abscess without bleeding; K64.8 Other hemorrhoids; K21.9 Gastro-esophageal reflux disease without esophagitis; F41.9 Anxiety disorder, unspecified; F32.A Depression, unspecified; I10 Essential (primary) hypertension; Z82.49 Family history of ischemic heart disease and other diseases of the circulatory system; Z79.84 Long term (current) use of oral hypoglycemic drugs; E66.01 Morbid (severe) obesity due to excess calories; Z68.43 Body mass index [BMI] 50.0-59.9, adult
CPT/HCPCS: 45385; 82948; 88305; J2704; J7120

== ENCOUNTER 2023-11-19 12:22 | Emergency (ER) | payer OTHER, SELFPAY ==
--- NOTE | ~2023-11-19 | XR_ITS ---
XR hip LT min 2V DATE: 11/19/2023 13:03 INDICATION: Left hip pain for over one month. No injury. TECHNIQUE: AP and lateral views of left hip COMPARISON: None FINDINGS: There is some probable degenerative cysts of the superolateral aspect of the left acetabulu m. There is mild spurring of the left femoral head. Left hip joint space is relatively preserved. No fracture, dislocation, avascular necrosis or bone destruction is detected. Normal alignment at the pubic symphysis and left sacroiliac joint. IMPRESSION: Mild left hip osteoarthritis Reviewed, dictated and finalized at location L. [facility] [employer]
[2023-11-19 12:31] VITALS: BP 143/75; PULSE 66; RESP 16; TEMP 36; O2SAT 99
--- NOTE | 2023-11-19 12:32 | ED.GENADULT ---
HPI - General Adult General Chief complaint: Extremity Injury, Lower Stated complaint: Left Flank and Hip Pain Time Seen by Provider: 11/19/23 12:32 Source: patient Mode of arrival: ambulatory Limitations: no limitations History of Present Illness HPI narrative: 48-year-old female presented for complaint of left hip pain for over 1 month, then started with left flank pain for about 1 week. She endorses the flank pain worsened last night rating it 8/10. She has been taking Tylenol and using pain patches. She has a history of UPJ blockage with stenting in 2019 with subsequent decreased renal function. Denies pain radiating into the legs, numbness, tingling, weakness of the lower extremities, saddle paresthesia or loss of bowel or bladder. Denies hematuria, nausea, vomiting, abdominal pain, constipation, diarrhea, fevers or chills. Related Data Home Medications Medication Instructions Recorded Confirmed alprazolam 0.25 mg tablet (Xanax) 0.25 mg PO TID PRN Anxiety 06/22/20 11/19/23 atenolol 25 mg tablet 25 mg PO DAILY 06/22/20 11/19/23 cetirizine 10 mg tablet 10 mg PO DAILY 06/22/20 11/19/23 escitalopram oxalate 20 mg tablet 20 mg PO DAILY 06/22/20 11/19/23 glucosamine-chondroitin 250 mg-200 2 tablet PO TID 06/22/20 09/13/23 mg tablet (Osteo Bi-Flex) hydrochlorothiazide 25 mg tablet 25 mg PO DAILY 06/22/20 11/19/23 pantoprazole 40 mg tablet,delayed 40 mg PO QAM 06/22/20 11/19/23 release metformin 500 mg tablet 500 mg PO BID 01/18/21 11/19/23 Allergies Allergy/AdvReac Type Severity Reaction Status Date / Time No Known Allergies Allergy Verified 11/19/23 12:33 Review of Systems Review of Systems: CONSTITUTIONAL: Denies body aches, fever, chills EYES: Denies visual changes CARDIOVASCULAR: Denies chest pain, palpitations, or edema. RESPIRATORY: Denies cough or dyspnea. GASTROINTESTINAL: Denies abdominal pain, nausea, vomiting, or diarrhea. SKIN: Denies rash, itching, or wounds. MUSCULOSKELETAL: reports back pain NEUROLOGIC: Denies headache, numbness, tingling, or weakness. All systems reviewed & are unremarkable except as noted in HPI and below PMFSH Past Medical History Medical History Anxiety Colon cancer screening Depression Hemoglobin A1c less than 7.0% nov 2020 A1c= 5.0 HTN (hypertension) Hx of gastroesophageal reflux (GERD) Hypertension Osteoarthritis of right knee Surgical History Surgical History History of carpal tunnel surgery of right wrist Family History Family History Mother Hypertension Kidney disease Cerebrovascular accident Social History Social History Smoking status: Never smoker Alcohol intake: current Alcohol use details: once a week Substance use: never Substance use type: does not use Living arrangements: with family Occupation/Education: occupation Additional occupation/education comments: [employer] Gender identity (if verbalized by the patient): Female Spiritual care concerns: No Comments At time of signature, I have reviewed and agree with nursing past medical, surgical, social and family history unless otherwise noted. Please see nursing chart for further information. There is no relevant family history pertinent to the presenting complaint Exam Narrative: GENERAL: Well-appearing NECK: Supple. full ROM CHEST: Speaks in full sentences. No respiratory distress. HEART: Regular rate and rhythm. Normal and equal peripheral pulses. ABD: Soft, large, nontender; body habitus limits exam. No CVA tenderness. MUSC: No Vertebral point tenderness, no paraspinal tenderness. Mild left lateral hip TTP. BLEs with normal strength and sensation, normal range of motion endorses mild left hip pain with movement of LLE. No edema or ec
== END 2023-11-19 13:33 | disposition home or self-care (01) ==
PROVIDERS: Emergency Provider Nurse Practitioner Family; PCP Nurse Practitioner Family
DX: M25.552 Pain in left hip (principal); M54.50 Low back pain, unspecified; I10 Essential (primary) hypertension; F32.A Depression, unspecified; F41.9 Anxiety disorder, unspecified; Z79.899 Other long term (current) drug therapy; Z79.84 Long term (current) use of oral hypoglycemic drugs
CPT/HCPCS: 73502; 81003; 87086; 99213; G0463

== ENCOUNTER 2024-04-03 07:32 | Outpatient (CLI) | payer OTHER, SELFPAY ==
[2024-04-03 08:13] LABS: Hematocrit 40.1 % (37.0-47.0); Hemoglobin 12.6 g/dL (12.0-15.0); Mean Corpuscular HGB Conc 31.4 g/dl (32-36); Mean Corpuscular Volume 85.9 fl (80-100); Mean Platelet Volume 10.1 fl (7.4-10.4); Platelet Count Result 267 k/mm3 (150-375); Red Blood Count 4.67 M/mm3 (4.2-5.4); Red Cell Distribution Width 14.7 % (11.5-14.5); White Blood Count 13.8 K/mm3 (4.5-10.0)
[2024-04-03 08:39] LABS: Alanine Aminotransferase 8 U/L (6-35); Albumin Level 4.4 g/dL (3.5-5.1); Alkaline Phosphatase 74 U/L (38-126); Anion Gap 8 mmol/L (4-12); Aspartate Amino Transferase 29 U/L (14-36); Blood Urea Nitrogen 16 mg/dL (7-17); Calcium 9.1 mg/dL (8.4-10.2); Carbon Dioxide 28 mmol/L (22-30); Chloride 102 mmol/L (98-107); Cholesterol 187 mg/dL (0-200); Estimated Glomerular Filt Rate > 60; Glucose 89 mg/dL (65-110); HDL Direct 52 mg/dL; Potassium 3.6 mmol/L (3.4-5.0); Sodium 138 mmol/L (137-145); Triglycerides 131 mg/dL (<150)
[2024-04-03 08:50] LABS: LDL Cholesterol Direct 115 mg/dL
[2024-04-03 09:05] LABS: Thyroid Stimulating Hormone Reflex 0.177 uIU/mL (0.465-4.68)
[2024-04-03 09:12] LABS: Creatinine Urine 121.1 mg/dL
[2024-04-03 09:16] LABS: MALB Creatinine Ratio 7.7 mg/g (0-30); Microalbumin Urine Random 9.3 mg/L (0-16.7)
[2024-04-03 09:20] LABS: Hemoglobin A1C 5.5 % (<5.7)
[2024-04-03 10:00] LABS: Free T4 Free Thyroxine Reflex 1.08 ng/dL (0.78-2.19)
[2024-04-03 13:28] LABS: Total Triiodothyronine (T3) 2.14 NG/ML (0.97-1.69)
== END 2024-04-03 07:33 | disposition home or self-care (01) ==
LOC: ANHLAB 07:34
PROVIDERS: PCP Nurse Practitioner Family; Visit Provider Nurse Practitioner Family
DX: E11.9 Type 2 diabetes mellitus without complications (principal); Z13.220 Encounter for screening for lipoid disorders; Z13.29 Encounter for screening for other suspected endocrine disorder; Z13.0 Encounter for screening for diseases of the blood and blood-forming organs and certain disorders involving the immune mechanism
CPT/HCPCS: 36415; 80053; 80061; 82043; 83036; 84439; 84443; 84480; 85027

== ENCOUNTER 2024-04-14 08:04 | Outpatient (CLI) | payer OTHER, SELFPAY ==
--- NOTE | ~2024-04-14 | XR_ITS ---
EXAMINATION: XR lg joint inject/asp w image DATE: 04/14/2024 08:51 INDICATION: Unilateral primary osteoarthritis, left hip. TECHNIQUE: A time-out was performed to verify the patient's name, date of , and procedure to b e performed. The procedure including the risks, benefits, and alternatives was discussed with the pat ient. Risks discussed included bleeding and infection. The patient understood the risks and agreed to proceed. The skin overlying the left hip joint was prepped and draped in usual sterile fashion. An esthetic was administered with 1% lidocaine subcutaneously. A 22 G needle was advanced under fluoros copic guidance into the joint. Subsequently, injectate consisting of 2 mL 0.5% bupivacaine and 1 mL 80 mg/mL Depo-Medrol was instilled. The needle was removed and the entry site was cleaned and dresse d. There were no immediate complications. Fluoroscopy exposure time was 0.1 minutes. The total numbe r of images was 1. FINDINGS: Real-time fluoroscopy demonstrates the needle in the left hip joint. Patient's pain prior t o procedure:12/21. Patient's pain following the procedure: 2. IMPRESSION: 1. Fluoroscopy guided left hip joint injection of local anesthetic and steroid. Reviewed, dictated and finalized at location A.
== END 2024-04-14 08:05 | disposition home or self-care (01) ==
PROVIDERS: PCP Nurse Practitioner Family; Visit Provider Orthopaedic Surgery
DX: M16.12 Unilateral primary osteoarthritis, left hip (principal)
CPT/HCPCS: 20610; 77002; J1010

== ENCOUNTER 2024-04-16 09:00 | Outpatient (RCR) | payer OTHER, SELFPAY ==
--- NOTE | 2024-02-06 15:04 | PTOPEVAL1 ---
Assessment and note entered by Cole Solorio Evaluation Information Assessment Status Evaluation Diagnosis left hip pain, trochanteric bursits Onset 11/11/23 Subjective Information Pt. reports that pain has been around the left hip for about 4 months. She states that pain is mostly located through the area of the left groin. She reports that pain is worsened with walking long distances. She describes sharp pain in the left hip. She states that she does notice a catching when attempting to get up from a seated position. She reports that she had a recent injection into the bursae on the left that help to reduce her pain. She uses Tylenol and ibuprofen to help reduce her pain. She reports no difficulty with sleep. She reports that she can complete all IADL's despite her pain. She states that her goal for therapy is to reduce the pain in the left hip. Reported Pain Level Pain Score 3: Self Report Assessment PT Clinical Summary Pt. is a 48 year old female who enters the clinic with a diagnosis of left hip pain. She presents with impaired hip mobility, impaired proximal l.e. strength, impaired postural awareness and pain on this date. Continued skilled PT is indicated in order to improve these areas to allow for improved comfort with IADL's. Plan of Care Interventions Electrical Stimulation,Gait Training,Hot Pack/Cold Pack,Manual Therapy,Neuro Re-education,Patient/ Caregiver Educati,Therapeutic Activities, Therapeutic Exercise PT Services Indicated Yes Treatment Frequency and 2x/week x 8 visits Duration These treatments will address the objective and functional deficits as defined above. The patient will be advanced safely and appropriately in order for the patient to progress towards his/her prior level of function. Additional exercises will be introduced and as well as a comprehensive home exercise program upon discharge, if needed, ?to ensure carryover of functional gains achieved in the clinic. This treatment plan has been reviewed and agreement upon by the patient.
--- NOTE | 2024-02-06 15:05 | OPREHPOC ---
Outpatient Therapy Plan of Care This is a Multidisciplinary Plan of Care that may contain components documented by all disciplines (PT, OT, and ST.) PT Problem 1 PT Problem #1 Knowledge Deficit PT Goal 1 Goal Independent with a HEP addressing hip mobility and strength. Target Visit 2 PT Problem 2 PT Problem #2 Impaired Gait PT Goal 1 Goal Pt. will ambulate for duration of 5 minutes demonstrating no episode of gait scissoring and absence of trendelenburg on left. Target Visit 8 PT Problem 3 PT Problem #3 Impaired Flexibility PT Goal 1 Goal Pt. will demonstrate 65 degrees passive prone left hip ER Pt. will demonstrate 35 degrees passive prone left hip IR PT Problem 4 PT Problem #4 Impaired Functional Mobil PT Goal 1 Goal Pt. will score 70 or greater on the LEFS indicating significant functional improvement Target Visit 10 PT Problem 5 PT Problem #5 Impaired Strength PT Goal 1 Goal Pt. will present with 4+/5 left hip abduction and extension strength
--- NOTE | 2024-03-12 10:58 | PCPTNOTE ---
pt called and canceled today's appt.
--- NOTE | 2024-03-19 14:31 | OPREHPOC ---
Outpatient Therapy Plan of Care This is a Multidisciplinary Plan of Care that may contain components documented by all disciplines (PT, OT, and ST.) PT Problem 1 PT Problem #1 Knowledge Deficit PT Goal 1 Goal Independent with a HEP addressing hip mobility and strength. Target Visit 2 Progress Met PT Problem 2 PT Problem #2 Impaired Gait PT Goal 1 Goal Pt. will ambulate for duration of 5 minutes demonstrating no episode of gait scissoring and absence of trendelenburg on left. Target Visit 8 Progress Met PT Problem 3 PT Problem #3 Impaired Flexibility PT Goal 1 Goal Pt. will demonstrate 65 degrees passive prone left hip ER Pt. will demonstrate 35 degrees passive prone left hip IR Progress Partially Met Comment Continues to lack internal rotation PT Problem 4 PT Problem #4 Impaired Functional Mobil PT Goal 1 Goal Pt. will score 70 or greater on the LEFS indicating significant functional improvement Target Visit 10 Progress Partially Met PT Problem 5 PT Problem #5 Impaired Strength PT Goal 1 Goal Pt. will present with 4+/5 left hip abduction and extension strength Progress Met Comment Improve. Minor lack remaining
--- NOTE | 2024-03-19 14:34 | PTOPPROG ---
Assessment and note entered by Lawrence Hobbs, PT Evaluation Information Assessment Status Progress Diagnosis left hip pain, trochanteric bursits Onset 11/11/23 Subjective Information Reports that since staring therapy she feels she has gotten a lot stronger and is overall about 40% better, but she does not think there is a lot of staying power to her current regimen as far as reducing the indicators of pin from a seated position. Would like to continue therapy to continue to emphasize hip mobility. Assessment PT Clinical Summary Patient making progress in strength. She is showing ROM deficits lacking significant internal rotation of left hip and extension. Will benefit from skilled therapy continuation focusing on ROM deficits and hip mobility coupled with continued hip strengthening. Plan of Care Interventions Electrical Stimulation,Gait Training,Hot Pack/Cold Pack,Manual Therapy,Neuro Re-education,Patient/ Caregiver Education,Therapeutic Activities, Therapeutic Exercise PT Services Indicated Yes Treatment Frequency and 1x/week for 4 weeks Duration These treatments will address the objective and functional deficits as defined above. The patient will be advanced safely and appropriately in order for the patient to progress towards his/her prior level of function. Additional exercises will be introduced and as well as a comprehensive home exercise program upon discharge, if needed, ?to ensure carryover of functional gains achieved in the clinic. This treatment plan has been reviewed and agreement upon by the patient.
--- NOTE | 2024-03-23 16:42 | PCPTNOTE ---
Pt no showed visit today.
--- NOTE | 2024-04-16 16:48 | OPREHPOC ---
Outpatient Therapy Plan of Care This is a Multidisciplinary Plan of Care that may contain components documented by all disciplines (PT, OT, and ST.) PT Problem 1 PT Problem #1 Knowledge Deficit PT Goal 1 Goal Independent with a HEP addressing hip mobility and strength. Target Visit 2 Progress Met PT Problem 2 PT Problem #2 Impaired Gait PT Goal 1 Goal Pt. will ambulate for duration of 5 minutes demonstrating no episode of gait scissoring and absence of trendelenburg on left. Target Visit 8 Progress Met PT Problem 3 PT Problem #3 Impaired Flexibility PT Goal 1 Goal Pt. will demonstrate 65 degrees passive prone left hip ER Pt. will demonstrate 35 degrees passive prone left hip IR Progress Partially Met Comment Continues to lack internal rotation PT Problem 4 PT Problem #4 Impaired Functional Mobil PT Goal 1 Goal Pt. will score 70 or greater on the LEFS indicating significant functional improvement Target Visit 10 Progress Met PT Problem 5 PT Problem #5 Impaired Strength PT Goal 1 Goal Pt. will present with 4+/5 left hip abduction and extension strength Progress Met Comment Improve. Minor lack remaining. Will reinforce through HEP.
--- NOTE | 2024-04-16 16:48 | PTOPDC ---
Assessment and note entered by Lawrence Hobbs, PT Evaluation Information Assessment Status Discharge Diagnosis left hip pain, trochanteric bursitis Onset 11/11/23 Subjective Information Reports that she had fluoroscopy injection on Saturday04/14/24. Reports initial increase in pain. Pain continues to be in lateral hip with increased pain from lateral movements. Walking seems to be much better with little to no pain during performance. Patient plans to continue with HEP to develop hip strength and mobility. Reported Pain Level Pain Score 3: Self Report Assessment PT Clinical Summary Patient reports that she has had some improvement but still suffers from hip pain that is primarily lateral. She is still showing minor hip mobility restrictions but demonstrates understanding of HEP to continue to address these deficits. Patient suitable for D/C to HEP at this time with compliance. Plan of Care PT Services Indicated D/C to HEP
== END 2024-04-17 08:13 | disposition home or self-care (01) ==
LOC: ANHPT 09:00
PROVIDERS: PCP Nurse Practitioner Family; Visit Provider Physician Assistant Surgical
DX: M70.62 Trochanteric bursitis, left hip (principal); M16.12 Unilateral primary osteoarthritis, left hip
CPT/HCPCS: 97014; 97110; 97140; 97161; 97530; 99199; G0283

== ENCOUNTER 2024-05-13 06:49 | Outpatient (CLI) | payer OTHER, SELFPAY ==
--- NOTE | ~2024-05-13 | MR_ITS ---
EXAMINATION: MR hip LT wo con DATE: 05/13/2024 07:57 INDICATION: Pain in left hip. TECHNIQUE: Magnetic resonance imaging (MRI) of the left hip was performed without intravenous contras t. COMPARISON: Left hip radiographs 11/19/2023 FINDINGS: Bones/cartilage: Bone alignment is normal. No fracture. There is severe lumbar spondylosis. There is mild right hip os teoarthritis. Small [id number] images of the left hip demonstrate full-thickness cartilage loss an terosuperiorly with subchondral cysts in the acetabulum and marginal osteophytes. Labrum: Left acetabular labrum is normal. Fluid: There is a small left hip joint effusion. There is mild right trochanteric bursitis and moderate left trochanteric bursitis. Soft tissues: There is moderate tendinopathy of the hamstring origins with small partial tears. The right gluteus m edius minimus and gluteus medius tendons are normal. Left gluteus medius tendon is normal. There is a near complete tear of left gluteus minimus tendon at its distal attachment. The iliopsoas tendons ar e normal. IMPRESSION: 1. Severe left hip chondrosis. Small left hip joint effusion. 2. Mild right hip osteoarthritis. 3. Near-complete tear of left gluteus minimus tendon. Reviewed, dictated and finalized at location A.
== END 2024-05-13 06:50 | disposition home or self-care (01) ==
PROVIDERS: PCP Nurse Practitioner Family; Visit Provider Physician Assistant Surgical
DX: M25.552 Pain in left hip (principal); M25.852 Other specified joint disorders, left hip; M25.452 Effusion, left hip; M16.12 Unilateral primary osteoarthritis, left hip; S76.012A Strain of muscle, fascia and tendon of left hip, initial encounter
CPT/HCPCS: 73721

== ENCOUNTER 2024-05-15 14:35 | Outpatient (CLI) | payer OTHER, SELFPAY ==
--- NOTE | ~2024-05-15 | MM_ITS ---
EXAMINATION: MM screening katiana BI w aurea HISTORY: Screening TECHNIQUE: Craniocaudal and mediolateral oblique 3-D tomosynthesis images were obtained and synthetic 2-D images were generated. CAD analysis was submitted and interpreted. COMPARISON: 01/07/2018 BREAST PARENCHYMAL COMPOSITION: Not dense: There are scattered areas of fibroglandular density. FINDINGS: There is a developing asymmetry in the periareolar location of the right breast. The left b reast is stable without evidence for malignancy. IMPRESSION: 1. Developing asymmetry periareolar location of the right breast. 2. Additional mammographic views and possible breast ultrasound are recommended. BI-RADS Category 0: Incomplete: Needs additional imaging evaluation. Reviewed, dictated and finalized at location B. IMPRESSION: 1. Developing asymmetry periareolar location of the right breast. 2. Additional mammographic views and possible breast ultrasound are recommended . BI-RADS Category 0: Incomplete: Needs additional imaging evaluation.
== END 2024-05-15 14:36 | disposition home or self-care (01) ==
LOC: ANHIMG 14:37
PROVIDERS: PCP Nurse Practitioner Family; Visit Provider Nurse Practitioner Family
DX: Z12.31 Encounter for screening mammogram for malignant neoplasm of breast (principal); R92.8 Other abnormal and inconclusive findings on diagnostic imaging of breast
CPT/HCPCS: 77063; 77067

== ENCOUNTER 2024-07-10 10:41 | Outpatient (CLI) | payer OTHER, SELFPAY ==
--- NOTE | ~2024-07-10 | MMUS_ITS ---
EXAMINATION: MM diagnostic katiana RT w aurea, US breast RT limited HISTORY: Follow-up right breast asymmetry TECHNIQUE: Additional 3-D tomosynthesis images of the right breast were performed and synthetic 2-D i mages were generated. CAD analysis was submitted and interpreted. High resolution Limited right breas t ultrasound was performed. COMPARISON: No prior studies for comparison. BREAST PARENCHYMAL COMPOSITION: Not dense: There are scattered areas of fibroglandular density. FINDINGS: MAMMOGRAPHIC FINDINGS: Focal asymmetry in the periareolar location of the right breast is not visualized on the current stud y. There are no suspicious masses, calcifications or architectural distortion in the right breast to suggest malignancy. ULTRASOUND: Limited right breast ultrasound: Normal heterogeneous echotexture without focal solid or cystic mass. IMPRESSION: 1. No evidence for malignancy in the right breast. 2. Routine yearly screening mammogram and regular clinical breast examination are recommended. BI-RADS Category 1: Negative Reviewed, dictated and finalized at location B. IMPRESSION: 1. No evidence for malignancy in the right breast. 2. Routine yearly screening mammogram and regular clinical breast examination a re recommended. BI-RADS Category 1: Negative
== END 2024-07-10 10:42 | disposition home or self-care (01) ==
LOC: ANHIMG 10:41
PROVIDERS: PCP Nurse Practitioner Family; Visit Provider Nurse Practitioner Family
DX: R92.8 Other abnormal and inconclusive findings on diagnostic imaging of breast (principal)
CPT/HCPCS: 76642; 77061; 77065; G0279

== ENCOUNTER 2024-07-27 07:41 | Outpatient (CLI) | payer OTHER, SELFPAY ==
[2024-07-27 08:42] LABS: Total Triiodothyronine (T3) 2.33 NG/ML (0.97-1.69)
[2024-07-27 09:03] LABS: Free T4 Free Thyroxine 1.19 ng/mL (0.78-2.19)
== END 2024-07-27 07:42 | disposition home or self-care (01) ==
LOC: ANHLAB 07:42
PROVIDERS: PCP Nurse Practitioner Family; Visit Provider Nurse Practitioner Family
DX: R79.89 Other specified abnormal findings of blood chemistry (principal)
CPT/HCPCS: 36415; 84439; 84443; 84480

== ENCOUNTER 2024-09-08 18:50 | Emergency (ER) | payer OTHER, SELFPAY ==
[2024-09-08 19:00] VITALS: BP 153/104; PULSE 70; RESP 15; TEMP 36.6; O2SAT 99
--- NOTE | 2024-09-08 19:15 | ED.BACK ---
HPI - Back Pain/Injury General Chief Complaint: Back Pain/Injury Stated Complaint: Left Back Side/Hip Pain Source: patient, RN notes reviewed and old records reviewed Mode of arrival: ambulatory Limitations: no limitations History of Present Illness HPI Narrative: Patient with chronic left SI joint/hip pain presents with complaints of exacerbation of chronic pain. Pain was exacerbated approximately 4 days ago. She reports that pain has become so bad it is interfering with her ADLs. She denies any new injury or trauma. She reports she has had good success with steroids and muscle relaxants to treat similar symptoms in the past. She voices no other concerns or complaints today Related Data Home Medications Medication Instructions Recorded Confirmed cetirizine 10 mg tablet 10 mg PO DAILY 06/22/20 09/08/24 glucosamine-chondroitin 250 mg-200 2 tablet PO TID 06/22/20 09/08/24 mg tablet (Osteo Bi-Flex) cholecalciferol (vitamin D3) 125 125 mcg PO DAILY 01/17/24 09/08/24 mcg (5,000 unit) capsule echinacea 125 mg capsule 400 mg PO DAILY 07/28/24 09/08/24 Allergies Allergy/AdvReac Type Severity Reaction Status Date / Time tirzepatide [From [facility]] AdvReac Severe Nausea Verified 09/08/24 18:54 murad products AdvReac Unknown unknown Uncoded 09/08/24 18:54 Review of Systems Review of Systems: All systems reviewed & are unremarkable except as noted in HPI and below Constitutional: Constitutional: Reports no additional constitutional complaints ENT: Reports system reviewed and no additional complaints, except as documented Cardiovascular: Cardiovascular: Reports no additional cardiovascular complaints Respiratory: Respiratory: Reports no additional respiratory complaints Gastrointestinal: Gastrointestinal: Reports no additional gastrointestinal complaints Musculoskeletal: Musculoskeletal: Reports no additional musculoskeletal complaints and Reports as per HPI [facility] Past Medical History Medical History Anxiety Colon cancer screening Depression Hemoglobin A1c less than 7.0% nov 2020 A1c= 5.0 HTN (hypertension) Hx of gastroesophageal reflux (GERD) Hypertension Migraine Obese Osteoarthritis of right knee Surgical History Surgical History History of carpal tunnel surgery of right wrist Family History Family History Mother Hypertension Kidney disease Cerebrovascular accident Asthma Diabetes mellitus Depression Hypothyroid Father Diabetes mellitus Hypertension Depression Heart disease Sibling Asthma Depression Grandparent Cerebrovascular accident Alcohol abuse Carcinoma of colon Social History Social History Social History: 07/28/24 Patient is very confident filling out medical forms. Smoking status: Never smoker Alcohol intake: current Drinks per week: 2 Alcohol use details: once a week Substance use: never Substance use type: does not use Do You Feel Safe in your Home?: Yes Lack of Transportation: No Lack of Food: Never True Current Housing: I Have Housing Concerned About Future Housing: No Difficulty Paying Gas/Electric Bills: No Difficulty Paying for Meds: No Currently Unemployed: No Education: Associate Degree Difficulty w/ Childcare or Family Care: No Living arrangements: alone Occupation/Education: occupation Additional occupation/education comments: [employer] Gender identity (if verbalized by the patient): Female Spiritual care concerns: No Agree to blood products: Yes Comments At the time of my signature, I reviewed and agree with the nursing past medical, surgical, social, and family history. There is no relevant family history pertinent to the patient complaint. Exam Const: General: cooperative, no acute distress, alert and awake Orientation/consciousness: oriented to person, oriented to place and oriented to time HENMT: Head: normal to inspection Resp: Effort & Inspection: normal respiratory effort and able to speak in complete sentences Auscultation: clear to auscultation bilaterally, no crackles, no rales, no rhonchi and no wheezes Cardio: Palpation: normal PMI Rate: regular rate Rhythm: regular rhythm Heart sounds: S1 normal heart sound present and S2 normal heart sound present Neuro: General: oriented to person, oriented to place and oriented to time Cranial nerves: Yes CN's II-XII intact bilaterally Extrem: Left lower extremity: hip/thigh Details: tenderness Location: of the hip Location: posteriorly Psych: Appearance: grossly normal Thought process: Normal thought process present Insight: Good insight present (Psych) Judgement: Good judgement present (Psych) Course Course Level of Care: Express Care Visit Vital Signs Vital signs: Vital Signs Temperature 97.9 F 09/08/24 19:00 Pulse Rate 70 09/08/24 19:00 Respiratory Rate 15 09/08/24 19:00 Blood Pressure 153/104 H 09/08/24 19:00 Pulse Oximetry 99 09/08/24 19:00 Oxygen Delivery Room Air 09/08/24 19:00 Temperature 97.9 F 09/08/24 19:00 Pulse Rate 70 09/08/24 19:00 Respiratory Rate 15 09/08/24 19:00 Blood Pressure 153/104 H 09/08/24 19:00 Pulse Oximetry 99 09/08/24 19:00 Oxygen Delivery Room Air 09/08/24 19:00 Reviewed MDM - Back Pain/Injury MDM Narrative Medical decision making narrative: Patient with exacerbation of chronic pain. Steroid and muscle relaxant prescribed. Discharge instructions reviewed with patient, as well as provided in writing per nursing staff. The instructions also include specific and strict return/GO TO THE ER as well as f/u information. All questions have been answered, and the patient deny any further questions with discharge and discharge plan. Some parts of this dictation were generated by voice recognition software and may contain typographical and/or grammatical inaccuracies. Differential Diagnosis Differential diagnosis: Likely lumbar radiculopathy and sciatica Discharge Plan Discharge Clinical Impression: Chronic SI joint pain Patient Disposition: Home, Self-Care Condition: Stable Instructions: Antibiotic Form, Musculoskeletal Pain (ED) Additional Instructions: Take medication as prescribed. Follow with primary care provider. Emergency department for new or worse symptoms Patient Language: Armenian Prescriptions: New cyclobenzaprine 10 mg tablet 10 mg PO TID PRN (Reason: muscle spasm) Qty: 20 0RF prednisone 50 mg tablet 50 mg PO DAILY Qty: 5 0RF No Action glucosamine-chondroitin [Osteo Bi-Flex] 250-200 mg tablet 2 tablet PO TID Rx Instructions: give after food/meal cetirizine 10 mg tablet 10 mg PO DAILY cholecalciferol (vitamin D3) 125 mcg (5,000 unit) capsule 125 mcg PO DAILY alprazolam [Xanax] 0.25 mg tablet 0.25 mg PO TID PRN (Reason: Anxiety) Qty: 90 0RF atenolol 25 mg tablet 25 mg PO DAILY Qty: 90 1RF escitalopram oxalate 20 mg tablet 20 mg PO DAILY Qty: 90 1RF hydrochlorothiazide 25 mg tablet 25 mg PO DAILY Qty: 90 3RF metformin 500 mg tablet 500 mg PO BID Qty: 180 1RF bupropion HCl [Wellbutrin XL] 150 mg tablet extended release 24 hr 150 mg PO QAM Qty: 30 3RF Rybelsus 7 mg tablet 7 mg PO DAILY Qty: 90 0RF Rx Instructions: use after 3 mg dose. omeprazole 40 mg capsule,delayed release(DR/EC) 40 mg PO DAILY Qty: 90 1RF echinacea 125 mg capsule 400 mg PO DAILY Rx Instructions: administer with meals norethindrone-e.estradiol-iron [Loestrin Fe 1.5/30 (28-Day)] 1.5 mg-30 mcg (21)/75 mg (7) tablet 1 tablet PO DAILY Qty: 84 3RF tramadol 50 mg tablet 50 mg PO Q6H PRN (Reason: pain) Qty: 30 0RF rosuvastatin 5 mg tablet 5 mg PO DAILY Qty: 90 3RF Follow-up/Referrals: Sharmin Luna APRN [Primary Care Provider] -
== END 2024-09-08 19:35 | disposition home or self-care (01) ==
PROVIDERS: Emergency Provider Nurse Practitioner Family; PCP Nurse Practitioner Family
DX: G89.29 Other chronic pain (principal); M53.3 Sacrococcygeal disorders, not elsewhere classified; I10 Essential (primary) hypertension; K21.9 Gastro-esophageal reflux disease without esophagitis; M17.11 Unilateral primary osteoarthritis, right knee
CPT/HCPCS: 99213; G0463

== ENCOUNTER 2024-10-20 13:06 | Outpatient (CLI) | payer OTHER, SELFPAY ==
[2024-10-20 14:38] LABS: Hemoglobin A1C 7.1 % (<5.7)
[2024-10-20 14:40] LABS: Alanine Aminotransferase 13 U/L (6-35); Albumin Level 4.4 g/dL (3.5-5.1); Alkaline Phosphatase 75 U/L (38-126); Anion Gap 5 mmol/L (4-12); Aspartate Amino Transferase 53 U/L (14-36); Bilirubin,Total 0.8 mg/dL (0.2-1.3); Blood Urea Nitrogen 13 mg/dL (7-17); Calcium 9.4 mg/dL (8.4-10.2); Carbon Dioxide 31 mmol/L (22-30); Chloride 102 mmol/L (98-107); Estimated Glomerular Filt Rate > 60; Glucose 120 mg/dL (65-110); Sodium 138 mmol/L (137-145)
[2024-10-20 15:11] LABS: Free T4 Free Thyroxine 1.35 ng/dL (0.78-2.19)
== END 2024-10-20 13:07 | disposition home or self-care (01) ==
LOC: ANHLAB 13:07
PROVIDERS: PCP Nurse Practitioner Family; Visit Provider Nurse Practitioner Family
DX: Z13.1 Encounter for screening for diabetes mellitus (principal); Z13.29 Encounter for screening for other suspected endocrine disorder; E03.9 Hypothyroidism, unspecified
CPT/HCPCS: 36415; 80053; 83036; 84439

== ENCOUNTER 2024-12-01 15:33 | Emergency (ER) | payer OTHER, SELFPAY ==
--- NOTE | 2024-12-01 15:41 | ED.URI ---
HPI - URI/Sore Throat General Chief Complaint: Upper Respiratory Infection Stated Complaint: earaches,cough,chills,uppper resp issue Time Seen by Provider: 12/01/24 15:41 Source: patient, RN notes reviewed and old records reviewed Mode of arrival: ambulatory Limitations: no limitations History of Present Illness HPI Narrative: 49-year-old female presents to the [facility] with complaints of earache, cough, chills, URI symptoms that started on Saturday, 3 days ago. Has been using [id number] products, nasal washes, ear drops. Related Data Home Medications ?Medication ?Instructions ?Recorded ?Confirmed ?Last Taken ?Type cetirizine 10 mg tablet 10 mg PO DAILY 06/22/20 12/01/24 Unknown History glucosamine-chondroitin 250 mg-200 2 tablet PO TID 06/22/20 12/01/24 Unknown History mg tablet (Osteo Bi-Flex) cholecalciferol (vitamin D3) 125 125 mcg PO DAILY 01/17/24 12/01/24 Unknown History mcg (5,000 unit) capsule echinacea 125 mg capsule 400 mg PO DAILY 07/28/24 12/01/24 Unknown History Allergies Allergy/AdvReac Type Severity Reaction Status Date / Time tirzepatide (From [facility]) AdvReac Severe Nausea Verified 12/01/24 15:42 murad products AdvReac Unknown unknown Uncoded 12/01/24 15:42 Review of Systems Review of Systems: All systems reviewed & are unremarkable except as noted in HPI and below Constitutional: Constitutional: Reports as per HPI and Reports chills ENT: Reports as per HPI and Reports otalgia Cardiovascular: Cardiovascular: Reports no additional cardiovascular complaints, Denies chest pain and Denies dyspnea Respiratory: Respiratory: Reports as per HPI, Denies chest congestion, Reports cough and Denies dyspnea Musculoskeletal: Musculoskeletal: Reports no additional musculoskeletal complaints Integumentary/Breasts: Skin/Breast: Reports system reviewed and no additional complaints, except as docu PMFSH Past Medical History Medical History Obese Migraine Colon cancer screening Hx of gastroesophageal reflux (GERD) Depression Anxiety HTN (hypertension) Hemoglobin A1c less than 7.0% nov 2020 A1c= 5.0 Osteoarthritis of right knee Hypertension Surgical History Surgical History History of carpal tunnel surgery of right wrist Family History Family History Mother Hypertension Kidney disease Cerebrovascular accident Asthma Diabetes mellitus Depression Hypothyroid Father Diabetes mellitus Hypertension Depression Heart disease Sibling Asthma Depression Grandparent Cerebrovascular accident Alcohol abuse Carcinoma of colon Social History Social History Social History: 10/18/24 Patient is very confident filling out medical forms. Smoking status: Never smoker Alcohol intake: current Drinks per week: 2 Alcohol use details: once a week Substance use: never Substance use type: does not use Do You Feel Safe in your Home?: Yes Lack of Transportation: No Lack of Food: Never True Current Housing: I Have Housing Concerned About Future Housing: No Difficulty Paying Gas/Electric Bills: No Difficulty Paying for Meds: No Currently Unemployed: No Education: Associate Degree Difficulty w/ Childcare or Family Care: No Living arrangements: alone Occupation/Education: occupation Additional occupation/education comments: [employer] Gender identity (if verbalized by the patient): Female Spiritual care concerns: No Agree to blood products: Yes Comments At the time of my signature, I reviewed and agree with the nursing past medical, surgical, social, and family history. There is no relevant family history pertinent to the patient complaint. Exam Const: General: cooperative, healthy appearing, comfortable, no acute distress, well developed, alert and well nourished Nutritional Appearance: well nourished and obese Orientation/consciousness: patient oriented x3 Limitations: no limitations HENMT: Head: normal to inspection Ears: TM normal on the left, EAC's normal, mastoids normal, no periauricular adenopathy and TM abnormal erythematous on the right Face/Nose/Sinus: Normal external nose present, Normal nares present and No nasal polyps present Mouth: Yes Normal oral and palatal mucosa present, Yes lip normal, Yes tongue normal and Yes moist mucous membranes Throat: posterior oropharynx normal, uvula midline, postnasal drainage and no uvular edema Eyes: General: appearance normal, both eyes and all related structures Alignment and Position: alignment normal Neck: Neck: normal visual inspection, full ROM, no lymphadenopathy and no meningeal signs Chest: Chest palpation & inspection: normal inspection of the chest Resp: Effort & Inspection: normal respiratory effort and able to speak in complete sentences Auscultation: clear to auscultation bilaterally, no crackles, no rales, no rhonchi and no wheezes Cardio: Rate: regular rate Skin: General skin exam: normal color and no rashes or lesions noted Neuro: General: patient oriented x3, gait normal, moves all extremities and no meningeal signs Cognition (Neuro): normal cognition Speech: normal speech Gait exam (Neuro): Normal gait present Extrem: General: normal to inspection, full ROM, capillary refill normal and normal gait Psych: Appearance: grossly normal and well kempt Mental Status: mental status grossly normal Speech and movement: Normal speech and movement present and Clear speech present Affect: normal affect Attitude: cooperative Course Course Level of Care: Express Care Visit Vital Signs Vital signs: Vital Signs Temperature 98.6 F 12/01/24 15:42 Pulse Rate 78 12/01/24 15:42 Respiratory Rate 16 12/01/24 15:42 Blood Pressure 160/80 H 12/01/24 15:42 Pulse Oximetry 100 12/01/24 15:42 Oxygen Delivery Room Air 12/01/24 15:42 Temperature 98.6 F 12/01/24 15:42 Pulse Rate 78 12/01/24 15:42 Respiratory Rate 16 12/01/24 15:42 Blood Pressure 160/80 H 12/01/24 15:42 Pulse Oximetry 100 12/01/24 15:42 Oxygen Delivery Room Air 12/01/24 15:42 Reviewed MDM - URI/Sore Throat MDM Narrative Medical decision making narrative: Patient sitting in exam room. Nontoxic, vitals are stable except blood pressure. Patient instructed to follow-up. Patient reports with 3 day history of URI symptoms, sinus symptoms. Right otitis media is noted. Flu COVID strep all negative. Patient appropriate for outpatient treatment with close follow-up Discharge instructions reviewed with patient, as well as provided in writing per nursing staff. The instructions also include specific and strict return/GO TO THE ER as well as f/u information. All questions have been answered, and the patient deny any further questions with discharge and discharge plan. Some parts of this dictation were generated by voice recognition software and may contain typographical and/or grammatical inaccuracies. Differential Diagnosis Differential diagnosis: Likely upper respiratory infection, croup, otitis media, sinusitis, viral infection, bronchitis, influenza and pharyngitis Lab Data Labs: Lab Results 12/01/24 Range/Units 16:10 POC Influenza A Ag Negative (Negative) POC Influenza B Ag Negative (Negative) POC SARS CoV-2 Ag Negative (Negative) POC Grp A Strep Screen Negative (Negative) Reviewed Critical Care Time Critical Care Time Critical Care Time: No Discharge Plan Discharge Clinical Impression: Acute right otitis media Sinusitis Qualifiers: Sinusitis location: pansinusitis Chronicity: acute Recurrence: not specified as recurrent Qualified Code(s): J01.40 - Acute pansinusitis, unspecified Patient Disposition: Home, Self-Care Condition: Stable Instructions: Antibiotic Form, Ear Infection (GEN), Upper Respiratory Infection (ED) Additional Instructions: Your rapid strep swab was negative today at [facility]. A throat culture will be sent to the laboratory for further testing. If the test is positive, you will receive a phone call within 48 hours and an appropriate antibiotic will be initiated at that time. Your rapid COVID test were negative Your rapid flu test was negative You have been prescribed an antibiotic for your ear infection. It is very important to treat your symptoms. Drink plenty of water, Gatorade, Pedialyte, ice pops or Jell-O. -Alternate Tylenol and Motrin per package directions for fever or pain. You can alternate every 4 hours -Antihistamine medication such as Zyrtec/Claritin/Carly during the day can help improve symptoms. -doing daily nasal irrigations can help relieve pressure your sinuses. Things like a Neti pot -Use Flonase twice a day for 5 days then daily to help reduce the inflammation and dry up your sinuses. -You can also use Mucinex. Be sure to drink plenty of water with this medication at least 8 ounces with every dose and it is important to drink 8 to 10 glasses of water per day. Water is a natural decongestant -Eat and drink things that are easy to swallow, like tea or soup, or popsicles. -Oral rinses such as: Salt water gargles and/or may use topical anesthetic (eg. Chloraseptic spray) or lozenges to relieve dryness or throat pain). -Frequent hand washing or hand marketing automation specialist is one of the best ways to prevent spread of infection. -Using a vaporizer or humidifier at night will also help thin secretions and help with coughing up phlegm. -Follow up with primary care provider in 7-10 days if condition is not improving - For new or worsening symptoms go directly to the nearest ER Patient Language: Irish Prescriptions: New amoxicillin-pot clavulanate 875-125 mg tablet 1 tablet PO Q12H Qty: 20 0RF No Action glucosamine-chondroitin [Osteo Bi-Flex] 250-200 mg tablet 2 tablet PO TID Rx Instructions: give after food/meal cetirizine 10 mg tablet 10 mg PO DAILY cholecalciferol (vitamin D3) 125 mcg (5,000 unit) capsule 125 mcg PO DAILY alprazolam [Xanax] 0.25 mg tablet 0.25 mg PO TID PRN (Reason: Anxiety) Qty: 90 0RF atenolol 25 mg tablet 25 mg PO DAILY Qty: 90 1RF escitalopram oxalate 20 mg tablet 20 mg PO DAILY Qty: 90 1RF hydrochlorothiazide 25 mg tablet 25 mg PO DAILY Qty: 90 3RF Rybelsus 7 mg tablet 7 mg PO DAILY Qty: 90 0RF Rx Instructions: use after 3 mg dose. omeprazole 40 mg capsule,delayed release(DR/EC) 40 mg PO DAILY Qty: 90 1RF echinacea 125 mg capsule 400 mg PO DAILY Rx Instructions: administer with meals norethindrone-e.estradiol-iron [Loestrin Fe 1.5/30 (28-Day)] 1.5 mg-30 mcg (21)/75 mg (7) tablet 1 tablet PO DAILY Qty: 84 3RF bupropion HCl 300 mg tablet extended release 24 hr 300 mg PO QAM Qty: 90 1RF rosuvastatin 5 mg tablet 5 mg PO DAILY Qty: 90 3RF metformin 500 mg tablet 500 mg PO BID Qty: 180 1RF Follow-up/Referrals: Sharmin Luna APRN [Primary Care Provider] - 2 Weeks (express care follow up ) Stand Alone Forms: Work/School Release IP Time of Disposition: 16:44
[2024-12-01 15:42] VITALS: BP 160/80; PULSE 78; RESP 16; TEMP 37; O2SAT 100
[2024-12-01 17:16] LABS: EDCOVIDSCREEN Negative (Negative); EDINFLUASCREEN Negative (Negative); EDINFLUBSCREEN Negative (Negative); EDSTREPNEGPOS1 Negative (Negative)
== END 2024-12-01 16:50 | disposition home or self-care (01) ==
PROVIDERS: Emergency Provider Nurse Practitioner; PCP Nurse Practitioner Family
DX: H66.91 Otitis media, unspecified, right ear (principal); J01.40 Acute pansinusitis, unspecified; Z20.822 Contact with and (suspected) exposure to COVID-19; I10 Essential (primary) hypertension; M17.11 Unilateral primary osteoarthritis, right knee; K21.9 Gastro-esophageal reflux disease without esophagitis; E66.9 Obesity, unspecified
CPT/HCPCS: 87081; 87426; 87804; 87880; 99213; G0463

== ENCOUNTER 2024-12-18 13:47 | Emergency (ER) | payer OTHER, SELFPAY ==
--- OUTSIDE RECORDS SUMMARY | 2024-12-18 13:51 | XMS_ITS | Clinical Summary ---
Author Organization [facility] Address [facility] [address] [place] [address] Care Team Providers Care Patrol Captain Name Role Phone Unavailable Primary Care Provider Unavailabl e Social History Tobacco Use Types Packs/Day Years Used Date Smoking Tobacco: Never Assessed Comments Unknown Sex and Gender Information Value Date Recorded Sex Assigned at Not on file Legal Sex Female 5:04 PM CDT Gender Identity Not on file Sexual Orientation Not on file Plan of Treatment Health Maintenance Due Date Last Done Comments Cervical Cancer Screening Pa p Smear (Age 30 to 64) Every 3 Years 1976 Colorectal Cancer Screening Colonoscopy (10 Years) 1976 Annual Physical 1979 Hepatitis C 1994 DTaP, Tdap and Td Vaccines ( 1 - Tdap) 1995 Hepatitis B Vaccines (1 of 3 - 19+ 3-dose series) 1995 Cervical Cancer Screening Pa p with HPV Testing (Age 30 to 64) Every 5 Years 2006 Cervical Cancer Screening with HPV 2006 Mammogram Screening 2016 COVID-19 Vaccine (2023-2 5 season) 2024 Influenza Adult (#1) 2024 Meningococcal B Vaccine Aged Out No l onger eligible based on patient's age to complete this topic Meningococcal Vaccine Aged Out No jonah kenya eligible based on patient's age to complete this topic Pneumococcal Vaccine: Pediat rics (0 to 5 Years) and At-Risk Patients (6 to 64 Years) Aged Out No longer eligible b ased on patient's age to complete this topic RSV Immunizations Under 20 Months Aged Out No longer eligible based on patient's age to complete this topic
--- OUTSIDE RECORDS SUMMARY | 2024-12-18 13:52 | XMS_ITS | Data Portability ---
Author Organization [facility] Intellution, Main Office Address [address] [place] [address] Care Team Providers Care Financial Officer Name Role Phone JUAN JETER Primary Care Provider JUAN JETER Referring Provider [phone] Assessment No assessment recorded. Plan of Treatment Reminders Order Date Submit Date Provider Last Modified By Organization Details Last Modified Time Details Appointments None recorded. Lab None recorded. Referral gastroenter ologist referral - screening colnooscopy 2022 023 [email or web address] 3 Rai tena MD, [address], [address], [place], [address], 3 09:08:34 Procedures None recorded. Surgeries None recorded. Imaging MAMMO, screening, bilateral 2022 [email or web address] [place] [address], [address] [facility] [address], [place], [address], 3 08:41:36 Medication Orders metronidazo le 500 mg tablet 2022 023 [facility] [address], [address] [place], [address], 3 15:54:08 famotidine 40 mg tablet 2022 023 [facility] [address], [address] [place], [address], 3 15:54:07 alprazolam 0.25 mg tablet 2022 023 [facility], [address] [facility], [place], [address], 15:54:10 Patient TargetsNo targets recorded. 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 [id number] [facility] (Imaging) [address] [place] [address], [phone], 01/09/2023 08:12:47 06/19/20 21 06/19/2021 XR, knee No observ ation record ed. [id number] [facility] ([facility]) [address] [place] [address], [address], 01/09/2023 08:12:47 11/19/19 24 11/19/2023 XR, hip, unila teral No observ ation record ed. [email or web address] [address], [address], 11/20/2023 07:39:42 Result Notes None recorded. Problems Name Problem SNOMED Code Status Onset Date Resolution Date Notes Provider Name and Address Organization Details Recorded Time Acute sinusitis 55449785 Completed Not Available [facility] 3 08:09:27 Acute left otitis media 959305521 Completed Not Available [facility] 3 08:09:27 Mixed anxiety and depressiv e disorder 127016256 Active 2018 Not Available [facility] 3 08:09:27 Gastroeso phageal reflux disease 134718355 Active Not Available [facility] 3 08:09:27 Headache 74588426 Active 2016 Not Available [facility] 3 08:09:27 Eruption 129227249 Completed 201612/09/2019 Not Available [facility] 3 08:09:27 Vaginal discharge 948386822 Completed 201712/09/2019 Not Available [facility] 3 08:09:27 Pain in right knee Active 2018 Not Available [facility] 3 08:09:27 Vitamin D deficienc y 57531350 Active 2019 Not Available [facility] 3 08:09:27 Depressiv e disorder 30175415 Active Not Available [facility] 3 08:09:27 Acute pharyngit is 306986135 Completed Not Available [facility] 3 08:09:27 Seasonal allergic rhinitis 075425103 Active 2016 Not Available [facility] 3 08:09:27 Hypertens anne disorder 55086559 Completed 201612/09/2019 Not Available [facility] 3 08:09:28 Disorder of vitamin D 337887877 Active Not Available [facility] 3 08:09:28 Pharyngit is 876171656 Completed Not Available [facility] 3 08:09:28 Obese 063744409 Active 2016 Not Available [facility] 3 08:09:28 Anxiety 21390437 Active Not Available [facility] 3 08:09:28 Essential hypertens ion 33043757 Active Not Available [facility] 3 08:09:28 Allergic rhinitis 33540908 Completed Not Available [facility] 3 08:09:28 Diarrhea 26266890 Completed 201612/09/2019 Not Available [facility] 3 08:09:28 Urinary tract infectiou s disease 10315458 Completed Not Available [facility] 3 08:09:28 Acid reflux 095582800 Active 2019 Not Available [facility] 3 08:09:28 Liver enzymes level above reference range 404073288 Active 2016 Not Available [facility] 3 08:09:28 Diabetes mellitus 13865413 Active 2019 Not Available [facility] 3 08:09:28 Sleep apnea 77390076 Active 2019 Not Available [facility] 3 08:09:28 Serous otitis media 93116229 Completed Not Available [facility] 3 08:09:29 Rupture of rectum 01878239 Active 2022 Juan Jeter NP [address], [address], [place], [address] , [employer] 3 15:39:30 Pain of right knee joint 97832500179 4100 Active 2023 Brandon Harp MD [address], [address], [place], [address] , [employer] [facility] [employer] 4 16:38:45 Problem Notes None recorded. Procedures Surgical History Date Name Laterality Status Provider Name and Address Organization Details Recorded Time 09/25/20 23 Date of Last Colonoscopy completed Juan Jeter NP [address], [place], [address], [employer] [facility] 09/27/2023 06:38:45 02/10/20 21 ureteroscopy completed Not Available [facility] 023 08:06:37 Imaging Results Imaging Date Name Status LastModified by Organiz ation Details LastModified Time 05/30/2021 US, duplex, retroperitoneum , complete completed [id number] [facility] (Imaging) [address] [place] [address] [place] [address], [phone], 01/09/2023 08:12:47 06/19/2021 XR, knee completed [id number] [facility] (Imaging) [facility] [address] [place] [address], [phone], 01/09/2023 08:12:47 11/19/2023 XR, hip, unilateral completed [email or web address] [facility] [address], [place], [address], 11/20/2023 07:39:42 Procedure Notes None recorded. Medical Equipment None Reported. Allergies No known drug allergies Medications Name Sig Start Date Stop Date Status Note LastModified by Organization Details LastModified Time metformin 500 mg tablet Take 1 tablet by mouth twice daily active Not Available Not Available No t Available citalopram 40 mg tablet TAKE ONE TABLET BY MOUTH ONCE DAILY active Not Available Not Available No t Available azithromyci n 250 mg tablet TAKE 2 TABLETS (500 MG) BY ORAL ROUTE ONCE DAILY FOR 1 DAY THEN 1 TABLET (250 MG) BY ORAL ROUTE ONCE DAILY FOR 4 DAYS 03/16 completed Not Available Not Available Not Available fluconazole 150 mg tablet Take 1 tablet every day by oral route for 1 day. 06/05 completed Not Available Not Available Not Available benzonatate 200 mg capsule TAKE 1 CAPSULE BY MOUTH THREE TIMES DAILY NEEDED FOR COUGH 06/05 completed Not Available Not Available Not Available hydrocodone 5 mg-acetamin ophen 325 mg tablet TAKE 1 TABLET BY MOUTH EVERY 8 HOURS NEEDED active Not Available Not Available No t Available famotidine 40 mg tablet TAKE 1 TABLET BY MOUTH ONCE DAILY active Not Available Not Available No t Available atenolol 25 mg tablet Take 1 tablet by mouth once daily active Not Available Not Available No t Available Zyrtec 10 mg tablet Take 1 tablet every day by oral route. 2021 active Not Available Not Available Not Avai lable metronidazo le 500 mg tablet TAKE 1 TABLET BY MOUTH EVERY 8 HOURS active Not Available Not Available No t Available sulfamethox azole 800 mg-trimetho prim 160 mg tablet TAKE 1 TABLET BY MOUTH TWICE DAILY 03/28 completed Not Available Not Available Not Available ketorolac 10 mg tablet TAKE 1 TABLET BY MOUTH EVERY 6 HOURS NEEDED FOR BACK PAIN active Not Available Not Available No t Available pantoprazol e 20 mg tablet,amado yed release TAKE 1 TABLET BY MOUTH ONCE DAILY 06/05 completed Not Available Not Available Not Available meloxicam 7.5 mg tablet 10/06 completed Not Available Not Available Not Available Microgestin FE 11/30 (28) 1 mg-20 mcg (21)/75 mg (7) tablet Take 1 tablet every day by oral route for 28 days. active Not Available Not Available No t Available alprazolam 0.25 mg tablet Take 1 tablet by mouth twice daily as needed 2022 active Not Available Not Available Not Avai lable cephalexin 500 mg capsule TAKE 1 CAPSULE BY MOUTH TWICE DAILY 03/28 completed Not Available Not Available Not Available pantoprazol e 40 mg tablet,amado yed release TAKE 1 TABLET BY MOUTH ONCE DAILY 06/05 completed Not Available Not Available Not Available oseltamivir 75 mg capsule Take 1 capsule twice a day by oral route as directed for 5 days. active Not Available Not Available No t Available Cipro 500 mg tablet Take 1 tablet every 12 hours by oral route for 5 days. 01/07 completed Not Available Not Available Not Available prednisone 50 mg tablet TK 1 T PO D active Not Available Not Available No t Available polymyxin B sulfate 10,000 unit-trimet hoprim 1 mg/mL eye drops active Not Available Not Available Not Available ranitidine 150 mg capsule Take 1 capsule twice a day by oral route. 07/25 completed Not Available Not Available Not Available hydrochloro thiazide 25 mg tablet Take 1 tablet by mouth once daily active Not Available Not Available No t Available Cheratussin AC 10 mg-100 mg/5 mL oral liquid Take 10 mL every 4-6 hours by oral route as needed. active Not Available Not Available No t Available methylpredn isolone 4 mg tablets in a dose pack TAKE BY MOUTH DIRECTED ON INSIDE OF PACKAGE 06/05 completed Not Available Not Available Not Available albuterol sulfate HFA 90 mcg/actuati on aerosol inhaler INHALE 2 PUFFS BY MOUTH 4 TIMES DAILY NEEDED FOR SHORTNESS OF BREATH OR WHEEZING active Not Available Not Available No t Available rizatriptan 5 mg disintegrat ing tablet Take 1 tablet as needed by oral route as directed for 30 days. active Not Available Not Available No t Available Cipro 250 mg tablet Take 1 tablet every 12 hours by oral route for 3 days. 02/26 completed Not Available Not Available Not Available ondansetron 4 mg disintegrat ing tablet Take 1 tablet every 6-8 hours by oral route as needed for 5 days. active Not Available Not Available No t Available fluticasone propionate 50 mcg/actuati on nasal spray,suspe nsion 2 sprays each nostril once daily 11/05 completed Not Available Not Available Not Available amoxicillin 875 mg-potassiu m clavulanate 125 mg tablet Take 1 tablet every 12 hours by oral route for 10 days. 06/05 completed Not Available Not Available Not Available biotin 500 mcg capsule Take 1 microgram twice a day by oral route as directed. 06/22 completed +extr a 1000m cg Not Available Not Available Not Available escitalopra m 10 mg tablet 2 tab po daily 06/05 completed Not Available Not Available Not Available escitalopra m 20 mg tablet Take 1 tablet by mouth once daily active Not Available Not Available No t Available Sprintec (28) 0.25 mg-35 mcg tablet active Not Available Not Available Not Available biotin 12/09 completed Not Available Not Available Not Available multivitami n 1 po qd 06/22 completed Not Available Not Available Not Available B12 Sublingua l 2019 active Not Available Not Available Not Avai lable Vitamin D3 125 mcg (5,000 unit) tablet Take 1 tablet every day by oral route. 06/22 completed Not Available Not Available Not Available OneTouch Verio test strips USE TO CHECK FASTING BLOOD SUGAR AND RECORD DAILY active Not Available Not Available No t Available Flonase Allergy Relief 2019 active Not Available Not Available Not Avai lable OneTouch Verio Flex Meter USE TO CHECK GLUCOSE ONCE DAILY active Not Available Not Available No t Available Ozempic 0.25 mg or 0.5 mg (2 mg/1.5 mL) subcutaneou s pen injector Inject by subcutane ous route for 56 days. 10/31 completed Not Available Not Available Not Available OneTouch Delica Plus Lancet 33 gauge USE TO CHECK FASTING BLOOD SUGAR AND RECORD DAILY active Not Available Not Available No t Available [facility]te ODT 75 mg disintegrat ing tablet 75 mg PO x1 04/17 completed Not Available Not Available Not Available Ozempic 1 mg/dose (4 mg/3 mL) subcutaneou s pen injector INJECT 1 MG ONCE A WEEK 10/31 completed Not Available Not Available Not Available Vitals Date Recorded Body mass index (BMI) Body mass index (BMI) Body mass index (BMI) Body height Body height Body height Oxygen saturation Oxygen saturation in Arterial blood by Pulse oximetry Oxygen saturation Oxygen saturation in Arterial blood by Pulse oximetry Oxygen saturation Oxygen saturation in Arterial blood by Pulse oximetry Heart rate Heart rate Heart rate Respiratory rate Body temperature Body temperature Body temperature Body weight Body weight Body weight Systolic blood pressure Diastolic blood pressure Systolic blood pressure Diastolic blood pressure Systolic blood pressure Diastolic blood pressure Provider Name and Address Organization Details Last Updated DateTime 3 40.3 kg/m2 54.3 kg/m2 54.2 kg/m2 170.18 cm 170.18 cm 170.18 cm 97 % 97 % 96 % 96 % 98 % 98 % 55 /min 77 /min 66 /min 16 /min 97 [degF] 97.6 [degF] 97.4 [degF] 755419. 04 g 920491. 55 g 089631. 96 g 120 mm[Hg] 80 mm[Hg] 142 mm[Hg] 96 mm[Hg] 132 mm[Hg] 88 mm[Hg] Not Available [facility] 3 08:07:07 Date Recorded Body height Body mass index (BMI) Body weight Body temperature Heart rate Respiratory rate Oxygen saturation Oxygen saturation in Arterial blood by Pulse oximetry Heart rate Pain severity - 0-10 verbal numeric rating [Score] - Reported Systolic blood pressure Diastolic blood pressure Provider Name and Address Organization Details Last Updated DateTime 3 170.18 cm 51.5 kg/m2 165723. 24 g 98.21 [degF] 88 /min 20 /min 97 % 97 % 68 /min 0 140 mm[Hg] 82 mm[Hg] Clay [facility] 3 15:31:44 Social History Question Answer Notes LastModified by Organizat ion Details LastModified Time Tobacco Smoking Status Never Smoker Not Available [facility] 01/09/2023 08:06:02 Do You Have An Advance Directive? No [id number] Information not available 01/09/2023 What Is Your Level Of Alcohol Consumption? None MIGRATION.53495 46868 Information not available 01/09/2023 Do You Wear A Helmet When Biking? No MIGRATION.03701 68883 Information not available 01/09/2023 What Is Your Level Of Caffeine Consumption? Moderate MIGRATION.62020 45699 Information not available 01/09/2023 How Much Tobacco Do You Chew? None MIGRATION.93068 67053 Information not available 01/09/2023 In The 14 Days Before Symptom Onset, Have You Had Close Contact With A Laboratory-confi rmed COVID-19 While That Case Was Ill? No MIGRATION.20210 27351 Information not available 01/09/2023 In The 14 Days Before Symptom Onset, Have You Had Close Contact With A Person Who Is Under Investigation For COVID-19 While That Person Was Ill? No MIGRATION.49533 82881 Information not available 01/09/2023 What Type Of Diet Are You Following? CARBOHYDRATE MIGRATION.67844 98287 Information not available 01/09/2023 Which Illicit Or Recreational Drugs Have You Used? None MIGRATION.09164 62406 Information not available 01/09/2023 Do You Or Have You Ever Used E-cigarettes Or Vape? Never Used Electronic Cigarettes MIGRATION.70051 52120 Information not available 01/09/2023 What Is The Highest Grade Or Level Of School You Have Completed Or The Highest Degree You Have Received? 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 No MIGRATION.43820 22819 Information not available 01/09/2023 What Is The Fluoride Status Of Your Home? Unknown MIGRATION.61898 71248 Information not available 01/09/2023 Are There Any Guns Present In Your Home? No MIGRATION.59180 07970 Information not available 01/09/2023 Do You Use Insect Repellent Routinely? Yes MIGRATION.98922 33880 Information not available 01/09/2023 Where Do You Live? [place]LevelHouse MIGRATION.65111 84479 Information not available 01/09/2023 Do You Have A Medical Power Of Entry Level Recruiter? No MIGRATION.51713 54920 Information not available 01/09/2023 Do You Have Any Pets? Yes MIGRATION.30195 27474 Information not available 01/09/2023 What Is Your Relationship Status? Single MIGRATION.03788 80976 Information not available 01/09/2023 Do You Use Your Seat Belt Or Car Seat Routinely? Yes MIGRATION.67341 50514 Information not available 01/09/2023 Do You Have Smoke And Carbon Monoxide Detectors In Your Home? Yes MIGRATION.30478 72376 Information not available 01/09/2023 Are You Passively Exposed To Smoke? No MIGRATION.90536 99026 Information not available 01/09/2023 Do You Or Have You Ever Used Smokeless Tobacco? Never Used Smokeless Tobacco MIGRATION.86056 81672 Information not available 01/09/2023 Are There Any Smokers In Your House? No MIGRATION.44902 03009 Information not available 01/09/2023 How Much Tobacco Do You Smoke? No MIGRATION.53052 33889 Information not available 01/09/2023 Do You Participate In Social Media? Yes MIGRATION.76757 73452 Information not available 01/09/2023 Do You Feel Stressed (tense, Restless, Nervous, Or Anxious, Or Unable To Sleep At Night)? [id number] MIGRATION.67672 45248 Information not available 01/09/2023 Do You Use Any Illicit Or Recreational Drugs? No MIGRATION.31895 36192 Information not available 01/09/2023 Do You Use Sunscreen Routinely? Yes MIGRATION.60482 13466 Information not available 01/09/2023 Have You Recently Traveled Abroad? No MIGRATION.82715 92289 Information not available 01/09/2023 Are You Currently In School? No MIGRATION.25685 59473 Information not available 01/09/2023 Do You Have Any Dietary Restrictions? No MIGRATION.82974 33045 Information not available 01/09/2023 Sex: Female Functional Status Question Answer Note LastModified by Organizat ion Details LastModified Time What is your exercise level? Occasional [id number] Information not available 01/09/2023 Mental Status None recorded. Family History Relationship Description Onset Age of this Age Resolved Age Notes LastModified by Organization Details LastModified Time Mother Hypertensive disorder MIGRATION.201 [id number] Not available 01/09/2023 08:06:37 Mother Asthma MIGRATION.944 [id number] Not available 01/09/2023 08:06:38 Mother Family history of stroke MIGRATION.190 [id number] Not available 01/09/2023 08:06:38 Mother Diabetes mellitus MIGRATION.138 [id number] Not available 01/09/2023 08:06:38 Mother Congestive heart failure MIGRATION.032 [id number] Not available 01/09/2023 08:06:38 Mother Anxiety disorder MIGRATION.011 [id number] Not available 01/09/2023 08:06:38 Mother Arthritis MIGRATION.512 [id number] Not available 01/09/2023 08:06:38 Mother Dupuytren's disease MIGRATION.162 1007002 Not available 01/09/2023 08:06:38 Mother Hypothyroidi sm MIGRATION.449 [id number] Not available 01/09/2023 08:06:38 Father Heart disease MIGRATION.810 6379373 Not available 01/09/2023 08:06:38 Father Diabetes mellitus MIGRATION.527 [id number] Not available 01/09/2023 08:06:38 Father Hypertensive disorder MIGRATION.903 [id number] Not available 01/09/2023 08:06:38 Father Depressive disorder MIGRATION.293 [id number] Not available 01/09/2023 08:06:38 Father Hypothyroidi sm MIGRATION.557 [id number] Not available 01/09/2023 08:06:38 Father Gastroesopha geal reflux disease MIGRATION.878 [id number] Not available 01/09/2023 08:06:38 Father Benign prostatic hyperplasia MIGRATION.338 [id number] Not available 01/09/2023 08:06:38 Medical History Condition Response BLINDNESS N RHEUMATIC FEVER N BLADDER PROBLEMS N KIDNEY STONES N MRSA N OTHER # 1 Y POLIO N LUNG DISEASE/DISORDER N RADIATION / CHEMOTHERAPY N COPD N Other # 2 N BLOOD DISEASES N SURGERY Y EAR OR HEARING PROBLEMS N MUMPS N DEPRESSION (INCLUDING POST ) Y FEMALE PROBLEMS / INFECTIONS N BOWEL PROBLEMS N STROKE/TIA N THYROID DISEASE N ULCERS N BENIGN PROSTATIC HYPERPLASIA N MEASLES N CERVICALGIA N TB SKIN TEST N MYOCARDIAL INFARCTION N PARAPELGIA N OBESITY Y GERD/NAUSEA Y ANEURYSM N URINARY/BLADDER/KIDNEY PROBLEMS Y CORONARY ARTERY DISEASE (CAD) N MENIERE'S DISEASE N ADDICTION CONCERNS N ENDOMETRIOSIS N USE OF BLOOD THINNERS N SKIN PROBLEMS N EMPHYSEMA N GASTROINTESTINAL DISORDER N MUSCLE,JOINT OR BONE PROBLEMS Y GASTROINTESTINAL BLEEDING N BLOOD CLOTS N ASTHMA N CATARACTS N ERECTILE DYSFUNCTION N GI PROBLEMS N CHF N Low Testosterone N NEUROPATHY N INFERTILITY N AIDS/HIV N FRACTURES N CHEMOTHERAPY / RADIATION N VISION/EYE PROBLEMS Y LIVER DISEASE N MALE HYPOGONADISM N HYPERTENSION Y TOURETTE'S N ANXIETY DISORDER Y BLOOD TRANSFUSION N ANEMIA/BLOOD DISORDER N CHRONIC EAR INFECTIONS N BRONCHITIS N TUBERCULOSIS N GLAUCOMA N FOOT PROBLEM Y DIVERTICULITIS N CHICKENPOX Y SLEEP APNEA Y ALLERGIES/HAYFEVER Y INFECTIOUS DISEASE N HEART ARRHYTHMIA N PROSTATE N INSOMNIA N HIGH CHOLESTEROL / HYPERLIPIDEMIA Y HYPERTHYROIDISM N EYE PROBLEMS Y EATING DISORDER N EDEMA N CHRONIC PAIN SYNDROME N CAROTID BLOCKAGE N CONSTIPATION N BACK / NECK PROBLEMS Y HAVE YOU BEEN HOSPITALIZED OR SEEN IN [facility] IN THE PAST YEAR ? N ATHEROSCLEROSIS N BREAST PROBLEMS N DIALYSIS N ECZEMA N FIBROMYALGIA N OSTEOPOROSIS N ARTHRITIS Y APPENDICITIS N DIABETES, TYPE Y BAD TEETH N HEARTBURN / REFLUX Y ADD/ADHD N AUTISM SPECTRUM DISORDER (ASD) N HEPATITIS / LIVER DISEASE N PULMONARY DISEASE N GOUT N SLEEP DISORDER Y ALZHEIMER'S DISEASE N PAIN Y HERPES N DEMENTIA N HEADACHES/MIGRAINES Y SEIZURES/EPILEPSY N VASCULAR DISEASE N PACEMAKER N DIZZINESS N HEART DISEASE/HEART PROBLEMS N KIDNEY DISEASE N DEVELOPMENTAL OR BEHAVIORAL DISORDERS N MULTIPLE SCLEROSIS N SCARLET FEVER N MENTAL DISORDER/ILLNESS N CARDIAC ARRHYTHMIA N CANCER: SPECIFY N PNEUMONIA N ATRIAL FIBRILLATION N Gall Stones N PULMONARY EMBOLISM N AUTOIMMUNE DISEASE N Gynecological History Statement/Question Response Current Control Method None Date of Last Colonoscopy 09/25/2023 Flow Light Date of LMP 03/09/2021 Frequency of Cycle (Q days) 3 Obstetrics History GPAL:G 0 P 0 0 0 0 Immunizations Vaccine Type Date Status Note Provider Nam e and Address Organization Details Recorded Time SARS-COV-2 (COVID-19) vaccine, UNSPECIFIED 1 completed Not Available [facility] 01/09/2023 08:12:22 SARS-COV-2 (COVID-19) vaccine, UNSPECIFIED 0 completed Not Available [facility] 01/09/2023 08:12:22 Influenza, split virus, quadrivalent, preservative 0 completed Not Available [facility] 01/09/2023 08:12:22 Influenza, split virus, quadrivalent, preservative 9 completed Not Available [facility] 01/09/2023 08:12:22 Influenza, split virus, quadrivalent, preservative 7 completed Not Available [facility] 01/09/2023 08:12:22 Influenza, split virus, trivalent, preservative 5 completed Not Available [facility] 01/09/2023 08:12:22 Influenza, split virus, trivalent, preservative 4 completed Not Available [facility] 01/09/2023 08:12:22 Tdap 3 completed Not Available [facility] 01/09/2023 08:12:22 Past Encounters Encounter ID Performer Location Encounter Start Date Encounter Closed Date Diagnosis/Indication Diagnosis SNOMED-CT Code Diagnosis ICD10 Code Diagnosis Note [id number] [address] [id number] 03/28/2021 00:00:00 03/28/2021 11:31:[id number] [address] 04/17/2022 00:00:00 04/17/2022 15:09:[id number] [address] 10/31/2022 00:00:00 10/31/2022 09:57:56 [id number] Juan Jeter NP [address] [address] 1 06/05/2023 15:13:07 06/05/2023 17:57:52 Rupture of rectum [id number] K63.1 related from constipati on. Will send metronidaz ole 500 mg po tid. Had elevated WBC. states rectal tear from constipati on and maybe that was infected. Gastroesop hageal reflux disease [id number] K21.9 Weaned down off the pantoprazo le to famotidine Mixed anxi ety and depressive disorder [id number] F41.8 alprazolam prn, escitalopr am 20 mg Essential hypertension [id number] I10 atenolol 25 mg po daily.HCTZ 25 mg po daily Sleep apnea [id number] G47 .30 wear CPAP nightly. Vitamin D deficiency 347 70420 E55.9 vit d supplement otc Seasonal a llergic rhinitis [id number] J30.2 stable Screening mammography 24 100707 Z12.31 Screening for malignant neoplasm of colon [id number] Z12.11 referred to GI 06/05/23 for colonoscop y. Health Concerns Section Related Observation LastModified by Organization Detai ls LastModified Time None Recorded Concern Status LastModified by Organization Details LastModified Time None Recorded Advance Directives Directive N: Payers Encounter Date Sequence Insurance Name Policy Number Policy Jensen Covered Member ID Jensen Member ID Guarantor Name 06/05/2023 1 R - [facility] [employer] (PPO) [id number] Maricruz Kim [id number] Maricruz Kim Notes Date Note Type Note Provider Name and Address Organization Details Recorded Time 06/05/2023 text/html Here for check up.Did just had labs done. Discussing today in office. States she hasn't been doing well, but felt bad 4 weeks ago, checked glucose and was 258. Has been turning things around since that time.Feeling well. Occasional constipation- using fiber.HTN- has been ok.Did not get mammogram yet. Never had colonoscopy. Anxiety- stable on lexapro. prn alprazolam. Juan Jeter, [place] [address] [facility], [facility] [address], [place], [address], [place] - [employer] [facility] 06/06/2023 08:03:16 OBGyn Episode No OBEpisode recorded.
[2024-12-18 13:58] VITALS: BP 177/91; PULSE 73; RESP 16; TEMP 36.3; O2SAT 99
--- NOTE | 2024-12-18 15:00 | ED.EAR ---
HPI - Ear Problem General Chief complaint: Ear Stated complaint: eye redness and ear pain Source: patient and family Mode of arrival: ambulatory Limitations: no limitations History of Present Illness HPI Narrative: Patient presents for evaluation of sick symptoms. She indicates she had a viral URI recently. She was also diagnosed with right sided otitis media. She was treated with augmentin. The right ear improved. She now has symptoms on the left. Symptoms include left sided ear pain and muffled hearing. She continues to have sinus congestion, nasal drainage and diarrhea. she is taking Imodium for symptoms. This morning she woke from sleep with her right eye crusted shut. She reports redness and itching to both eyes. She had thick yellow-green drainage from her right eye this morning. She wears contacts. Related Data Home Medications ?Medication ?Instructions ?Recorded ?Confirmed ?Last Taken ?Type cetirizine 10 mg tablet 10 mg PO DAILY 06/22/20 12/01/24 Unknown History glucosamine-chondroitin 250 mg-200 2 tablet PO TID 06/22/20 12/01/24 Unknown History mg tablet (Osteo Bi-Flex) cholecalciferol (vitamin D3) 125 125 mcg PO DAILY 01/17/24 12/01/24 Unknown History mcg (5,000 unit) capsule echinacea 125 mg capsule 400 mg PO DAILY 07/28/24 12/01/24 Unknown History Allergies Allergy/AdvReac Type Severity Reaction Status Date / Time tirzepatide (From [facility]) AdvReac Severe Nausea Verified 12/18/24 13:57 murad products AdvReac Unknown unknown Uncoded 12/01/24 15:42 Review of Systems Review of Systems: CONSTITUTIONAL: Denies fever, chills, or sweats. EYES: Reports redness and itchingto both eyes with thick yellow/green drainage from the right eye. ENT: reports sinus congestion and nasal drainage. CARDIOVASCULAR: Denies chest pain, palpitations, or edema. RESPIRATORY: Reports cough. Denies shortness of breath. GASTROINTESTINAL: Reports diarrhea. Denies abdominal pain, nausea, and vomiting GENITOURINARY: Denies dysuria or hematuria. SKIN: Denies rash or itching. MUSCULOSKELETAL: Denies back pain, joint pain, or myalgia. NEUROLOGIC: Denies headache, numbness, dizziness, or weakness. PSYCHIATRIC: Denies anxiety or depression. [facility] Past Medical History Medical History Obese Migraine Colon cancer screening Hx of gastroesophageal reflux (GERD) Depression Anxiety HTN (hypertension) Hemoglobin A1c less than 7.0% nov 2020 A1c= 5.0 Osteoarthritis of right knee Hypertension Surgical History Surgical History History of carpal tunnel surgery of right wrist Family History Family History Mother Hypertension Kidney disease Cerebrovascular accident Asthma Diabetes mellitus Depression Hypothyroid Father Diabetes mellitus Hypertension Depression Heart disease Sibling Asthma Depression Grandparent Cerebrovascular accident Alcohol abuse Carcinoma of colon Social History Social History Social History: 10/18/24 Patient is very confident filling out medical forms. Smoking status: Never smoker Alcohol intake: current Drinks per week: 2 Alcohol use details: once a week Substance use: never Substance use type: does not use Do You Feel Safe in your Home?: Yes Lack of Transportation: No Lack of Food: Never True Current Housing: I Have Housing Concerned About Future Housing: No Difficulty Paying Gas/Electric Bills: No Difficulty Paying for Meds: No Currently Unemployed: No Education: Associate Degree Difficulty w/ Childcare or Family Care: No Living arrangements: alone Occupation/Education: occupation Additional occupation/education comments: [employer] Gender identity (if verbalized by the patient): Female Spiritual care concerns: No Agree to blood products: Yes Exam Narrative: GENERAL: Well-appearing, well-nourished, and in no acute distress. HEAD: Normocephalic, atraumatic. EYES: PERRLA and EOMI. bilateral conjunctival injection. There is thick yellow drainage from the right eye. ENT: Nares clear, no rhinorrhea or epistaxis. Mucous membranes moist. Oropharynx without tonsillar hypertrophy exudate or other lesions. Bilateral TMs Are erythematous NECK: Supple. No adenopathy or masses. No carotid bruits or JVD CHEST: Clear to auscultation. No respiratory distress. No wheezes rales or rhonchi HEART: Regular rate and rhythm. No murmur heard. Normal peripheral pulses. ABDOMEN: Soft, nontender, nondistended, normal active bowel sounds. EXTREMITIES: Normal range of motion. No edema. SKIN: Warm, dry, no rash. NEURO: No focal deficits. Alert and oriented x3. PSYCH: Normal mood and affect. Course Course Emergency Course: This is a 49 year-old female who presented for evaluation of sick symptoms. She has evidence of otitis media bilaterally. Will treat with cefdinir. Will also treat with ofloxacin for conjunctivitis. Increase hydration. Ttvj-mai-nwtkmny agents for symptom management. Follow up with primary provider. Go to the ER for worsening symptoms. Patient in agreement with plan of care. Level of Care: Express Care Visit Vital Signs Vital signs: Vital Signs Temperature 36.3 C L 12/18/24 13:58 Pulse Rate 73 12/18/24 13:58 Respiratory Rate 16 12/18/24 13:58 Blood Pressure 177/91 H 12/18/24 13:58 Pulse Oximetry 99 12/18/24 13:58 Oxygen Delivery Room Air 12/18/24 13:58 Temperature 36.3 C L 12/18/24 13:58 Pulse Rate 73 12/18/24 13:58 Respiratory Rate 16 12/18/24 13:58 Blood Pressure 177/91 H 12/18/24 13:58 Pulse Oximetry 99 12/18/24 13:58 Oxygen Delivery Room Air 12/18/24 13:58 Medical Decision Making Vital Signs Vital Signs: Vital Signs Temperature 36.3 C L 12/18/24 13:58 Pulse Rate 73 12/18/24 13:58 Respiratory Rate 16 12/18/24 13:58 Blood Pressure 177/91 H 12/18/24 13:58 Pulse Oximetry 99 12/18/24 13:58 Oxygen Delivery Room Air 12/18/24 13:58 Temperature 36.3 C L 12/18/24 13:58 Pulse Rate 73 12/18/24 13:58 Respiratory Rate 16 12/18/24 13:58 Blood Pressure 177/91 H 12/18/24 13:58 Pulse Oximetry 99 12/18/24 13:58 Oxygen Delivery Room Air 12/18/24 13:58 Discharge Plan Discharge Clinical Impression: Conjunctivitis, Otitis media Patient Disposition: Home, Self-Care Condition: Stable Instructions: Antibiotic Form, Ear Infection (GEN), Conjunctivitis (ED) Patient Language: Wolof Prescriptions: New cefdinir 300 mg capsule 300 mg PO Q12H Qty: 20 0RF ofloxacin 0.3 % drops See Rx Instructions .ROUTE .COMPLEX Qty: 10 0RF Rx Instructions: put 1-2 drps into affected eye(s) every 2-4 h x 2 days, then 1-2 drps 4 times/day days 3-7 No Action amoxicillin-pot clavulanate 875-125 mg tablet 1 tablet PO Q12H Qty: 20 0RF glucosamine-chondroitin [Osteo Bi-Flex] 250-200 mg tablet 2 tablet PO TID Rx Instructions: give after food/meal cetirizine 10 mg tablet 10 mg PO DAILY cholecalciferol (vitamin D3) 125 mcg (5,000 unit) capsule 125 mcg PO DAILY alprazolam [Xanax] 0.25 mg tablet 0.25 mg PO TID PRN (Reason: Anxiety) Qty: 90 0RF atenolol 25 mg tablet 25 mg PO DAILY Qty: 90 1RF escitalopram oxalate 20 mg tablet 20 mg PO DAILY Qty: 90 1RF hydrochlorothiazide 25 mg tablet 25 mg PO DAILY Qty: 90 3RF Rybelsus 7 mg tablet 7 mg PO DAILY Qty: 90 0RF Rx Instructions: use after 3 mg dose. omeprazole 40 mg capsule,delayed release(DR/EC) 40 mg PO DAILY Qty: 90 1RF echinacea 125 mg capsule 400 mg PO DAILY Rx Instructions: administer with meals norethindrone-e.estradiol-iron [Loestrin Fe 1.5/30 (28-Day)] 1.5 mg-30 mcg (21)/75 mg (7) tablet 1 tablet PO DAILY Qty: 84 3RF bupropion HCl 300 mg tablet extended release 24 hr 300 mg PO QAM Qty: 90 1RF rosuvastatin 5 mg tablet 5 mg PO DAILY Qty: 90 3RF metformin 500 mg tablet 500 mg PO BID Qty: 180 1RF Follow-up/Referrals: Sharmin Luna APRN [Primary Care Provider] - Time of Disposition: 14:59
== END 2024-12-18 15:03 | disposition home or self-care (01) ==
PROVIDERS: Emergency Provider Nurse Practitioner; PCP Nurse Practitioner Family
DX: H66.93 Otitis media, unspecified, bilateral (principal); H10.9 Unspecified conjunctivitis; I10 Essential (primary) hypertension; K21.9 Gastro-esophageal reflux disease without esophagitis; M17.11 Unilateral primary osteoarthritis, right knee; E66.9 Obesity, unspecified; Z68.43 Body mass index [BMI] 50.0-59.9, adult; F41.9 Anxiety disorder, unspecified; F32.A Depression, unspecified
CPT/HCPCS: 99213; G0463

== ENCOUNTER 2025-09-23 07:04 | Outpatient (CLI) | payer OTHER, SELFPAY ==
[2025-09-23 08:52] LABS: Hematocrit 42.0 % (37.0-47.0); Hemoglobin 13.4 g/dL (12.0-15.0); Mean Corpuscular HGB Conc 31.9 g/dl (32-36); Mean Corpuscular Hemoglobin 26.2 pg (26-34); Mean Corpuscular Volume 82.2 fl (80-100); Platelet Count Result 252 k/mm3 (150-375); Red Blood Count 5.11 M/mm3 (4.2-5.4); White Blood Count 12.6 K/mm3 (4.5-10.0)
[2025-09-23 08:55] LABS: MALB Creatinine Ratio 12.7 mg/g (0-30)
[2025-09-23 09:17] LABS: Alanine Aminotransferase 22 U/L (6-35); Albumin Level 4.3 g/dL (3.5-5.1); Alkaline Phosphatase 115 U/L (38-126); Aspartate Amino Transferase 53 U/L (14-36); Bilirubin,Total 0.9 mg/dL (0.2-1.3); Blood Urea Nitrogen 17 mg/dL (7-17); Calcium 9.0 mg/dL (8.4-10.2); Carbon Dioxide 28 mmol/L (22-30); Cholesterol 138 mg/dL (0-200); Estimated Glomerular Filt Rate > 60; Glucose 216 mg/dL (65-110); HDL Direct 38 mg/dL; Total Protein 7.4 g/dL (6.3-8.2); Triglycerides 155 mg/dL (<150)
[2025-09-23 09:25] LABS: Anion Gap 9 mmol/L (4-12); Chloride 99 mmol/L (98-107); Potassium 3.5 mmol/L (3.4-5.0); Sodium 136 mmol/L (137-145)
[2025-09-23 09:59] LABS: Thyroid Stimulating Hormone Reflex 2.450 uIU/mL (0.465-4.68)
[2025-09-23 10:15] LABS: Hemoglobin A1C 11.1 % (<5.7)
== END 2025-09-23 07:05 | disposition home or self-care (01) ==
LOC: ANHLAB 07:05
PROVIDERS: PCP Nurse Practitioner Family; Visit Provider Nurse Practitioner Family
DX: Z13.0 Encounter for screening for diseases of the blood and blood-forming organs and certain disorders involving the immune mechanism (principal); Z13.1 Encounter for screening for diabetes mellitus; Z13.29 Encounter for screening for other suspected endocrine disorder; E11.9 Type 2 diabetes mellitus without complications; I10 Essential (primary) hypertension
CPT/HCPCS: 36415; 80053; 80061; 82043; 83036; 84443; 85027